=== PATIENT | female | born 1990 | race Caucasian/White ===

== ENCOUNTER 2017-12-25 12:23 | Emergency (ER) | payer OTHER, SELFPAY ==
[2017-12-25 12:29] VITALS: BP 126/82; PULSE 78; RESP 16; TEMP 36.6; O2SAT 100; BMI 21.9
--- NOTE | 2017-12-25 13:09 | HMH.EDGENADL ---
ED Disposition Clinical Impression: Laceration Disposition: Home, Self-Care Condition on Discharge: Fair Instructions: DI for Laceration Repair Additional Instructions: keep stitches dry for 2 days and apply ointment at least once a day for 10 days. May have stitches removed in 9 to 10 days Prescriptions: Mupirocin [Bactroban 2% Ointment 22gm tube] 1 applicatio TP BID 10 Days #1 tube Sulfamethoxazole/Trimethoprim [Bactrim DS tablet] 1 each PO BID 10 Days #20 tab Referrals: Franklin Kiran [Primary Care Provider] - Time of Disposition: 14:16 - Critical Care Critical Care Time: No Attestation: On 12/25/17, the high probability of a clinically significant, sudden or life threatening deterioration of the following system(s) required my full and direct attention, intervention and personal management. The time I documented below is in addition to time spent performing reported procedures but includes the following listed in this critical care notation. Medical Decision Making - Medical Records Medical records reviewed: Yes: I reviewed the patient's medical records. Vital Signs: 12/25/17 12:29 Temperature 97.9 F Temperature Source Oral Pulse Rate [Right Brachial] 78 Respiratory Rate 16 Blood Pressure [Right Arm] 126/82 Blood Pressure Mean [Right Arm] 96 Blood Pressure Source [Right Arm] Automatic Cuff Blood Pressure Position [Right Arm] Sitting 02 Sat by Pulse Oximetry 100 Oxygen Delivery Method Room Air - Elan Inquiry Pt receiving controlled substance: No Elan was queried for this patient: No General Adult HPI - General Chief complaint: Wound/Laceration Stated complaint: lac left hand pinky finger Time Seen by Provider: 12/25/17 13:10 Mode of Arrival: Ambulatory Limitations: No Limitations Description of Symptoms (Recalled from ER Triage Doc. by RN): laceration to L 5th finger from a knife - History of Present Illness HPI narrative: Pt cut left 5th finger tip with a knife trying to take wax out of a wax warmer at home. Small cut on tip of left 5th finger. Tetanus is UTD Onset (ago): hour(s) - Related Data Home Medications Medication Instructions Recorded Confirmed Amitriptyline HCl [Elavil 10mg 10 mg PO DAILY 12/25/17 12/25/17 tablet] Estradiol 2 mg PO DAILY 12/25/17 12/25/17 PARoxetine HCl [Paxil 10mg Tablet] 0 mg PO DAILY 12/25/17 12/25/17 diazePAM [diazePAM 5mg Tablet] 0 mg PO DAILY 12/25/17 12/25/17 Previous Rx's Medication Instructions Recorded Mupirocin [Bactroban 2% Ointment 1 applicatio TP BID 10 Days #1 tube 12/25/17 22gm tube] Sulfamethoxazole/Trimethoprim 1 each PO BID 10 Days #20 tab 12/25/17 [Bactrim DS tablet] Allergies Allergy/AdvReac Type Severity Reaction Status Date / Time Penicillins [PENICILLINS] Allergy Unknown Verified 12/25/17 12:35 [facility] History I have reviewed the patient's past medical history: Yes Medical History: Denies:: Cancer, Diabetes Mellitus Type 1, Diabetes Mellitus Type 2 Amputation: No Fractures: No - Social History Alcohol Intake: never - Psychiatric History Expresses thoughts of harming self/others: None Suicide Plan Description: No Plan ROS Obtained: Yes All systems reviewed & no additional complaints Physical Exam - General General appearance: alert, in no apparent distress - Respiratory Respiratory exam: Present: normal lung sounds bilaterally - Cardiovascular Cardiovascular exam: Present: regular rate - Expanded Upper Extremity Exam Left Hand exam: Present: other (0.5 cm cut on tip of left 5th finger) - Neurological Exam Neurological exam: Present: alert, oriented X3 - Psychiatric Psychiatric exam: Present: normal affect - Skin Skin exam: Present: other (small laceration on tip of left 5th finger) Procedures - Laceration Laceration 1 Site: finger (left 5th finger tip) Side (If applicable): left Size (cm): 0.5 Description: linear Depth: involves subcutane
--- NOTE | 2017-12-25 13:13 | ED_ITS ---
ED Disposition Clinical Impression: Laceration Disposition: Home, Self-Care Condition on Discharge: Fair Instructions: DI for Laceration Repair Additional Instructions: keep stitches dry for 2 days and apply ointment at least once a day for 10 days. May have stitches removed in 9 to 10 days Prescriptions: Mupirocin [Bactroban 2% Ointment 22gm tube] 1 applicatio TP BID 10 Days #1 tube Sulfamethoxazole/Trimethoprim [Bactrim DS tablet] 1 each PO BID 10 Days #20 tab Referrals: Franklin Kiran [Primary Care Provider] - Time of Disposition: 14:16 - Critical Care Critical Care Time: No Attestation: On 12/25/17, the high probability of a clinically significant, sudden or life threatening deterioration of the following system(s) required my full and direct attention, intervention and personal management. The time I documented below is in addition to time spent performing reported procedures but includes the following listed in this critical care notation. Medical Decision Making - Medical Records Medical records reviewed: Yes: I reviewed the patient's medical records. Vital Signs: 12/25/17 12:29 Temperature 97.9 F Temperature Source Oral Pulse Rate [Right Brachial] 78 Respiratory Rate 16 Blood Pressure [Right Arm] 126/82 Blood Pressure Mean [Right Arm] 96 Blood Pressure Source [Right Arm] Automatic Cuff Blood Pressure Position [Right Arm] Sitting 02 Sat by Pulse Oximetry 100 Oxygen Delivery Method Room Air - Elan Inquiry Pt receiving controlled substance: No Elan was queried for this patient: No General Adult HPI - General Chief complaint: Wound/Laceration Stated complaint: lac left hand pinky finger Time Seen by Provider: 12/25/17 13:10 Mode of Arrival: Ambulatory Limitations: No Limitations Description of Symptoms (Recalled from ER Triage Doc. by RN): laceration to L 5th finger from a knife - History of Present Illness HPI narrative: Pt cut left 5th finger tip with a knife trying to take wax out of a wax warmer at home. Small cut on tip of left 5th finger. Tetanus is UTD Onset (ago): hour(s) - Related Data Home Medications Medication Instructions Recorded Confirmed Amitriptyline HCl [Elavil 10mg 10 mg PO DAILY 12/25/17 12/25/17 tablet] Estradiol 2 mg PO DAILY 12/25/17 12/25/17 PARoxetine HCl [Paxil 10mg Tablet] 0 mg PO DAILY 12/25/17 12/25/17 diazePAM [diazePAM 5mg Tablet] 0 mg PO DAILY 12/25/17 12/25/17 Previous Rx's Medication Instructions Recorded Mupirocin [Bactroban 2% Ointment 1 applicatio TP BID 10 Days #1 tube 12/25/17 22gm tube] Sulfamethoxazole/Trimethoprim 1 each PO BID 10 Days #20 tab 12/25/17 [Bactrim DS tablet] Allergies Allergy/AdvReac Type Severity Reaction Status Date / Time Penicillins [PENICILLINS] Allergy Unknown Verified 12/25/17 12:35 [facility] History I have reviewed the patient's past medical history: Yes Medical History: Denies:: Cancer, Diabetes Mellitus Type 1, Diabetes Mellitus Type 2 Amputation: No Fractures: No - Social History Alcohol Intake: never - Psychiatric History Expresses thoughts of harming self/others: None Suicide Plan Description: No Plan ROS Obtained: Yes All systems reviewed & no additional complaints Physical Exam - General Ge
[2017-12-25 14:27] VITALS: BP 124/80; PULSE 72; RESP 16; TEMP 36.6; O2SAT 98
== END 2017-12-25 14:30 | disposition home or self-care (01) ==
PROVIDERS: Emergency Provider Family Medicine; PCP Pediatrics
DX: S61.217A Laceration without foreign body of left little finger without damage to nail, initial encounter (principal); W26.0XXA Contact with knife, initial encounter; Y93.E9 Activity, other interior property and clothing maintenance; Y92.009 Unspecified place in unspecified non-institutional (private) residence as the place of occurrence of the external cause
CPT/HCPCS: 12001; 96372; 99281; 99282

== ENCOUNTER → 2020-05-15 11:44 | Outpatient (CLI) | payer MEDICAID, SELFPAY ==
[2020-05-15 13:21] LABS: Erythrocyte Sedimentation Rate 13 mm/hr (0-20)
[2020-05-15 14:14] LABS: Uric Acid 4.5 mg/dl (2.5-6.2)
[2020-05-15 14:20] LABS: C-Reactive Protein 0.7 mg/L (0-4)
[2020-05-16 14:30] LABS: Antiscleroderma-70 Antibodies <0.2 AI (0.0-0.9); Complement C3 103 mg/dL (82-167); RA Latex Turbid. <10.0 IU/mL (0.0-13.9); Sjogren's Anti-SS-A <0.2 AI (0.0-0.9); Sjogren's Anti-SS-B <0.2 AI (0.0-0.9); Smith/RNP Antibodies <0.2 AI (0.0-0.9)
[2020-05-17 09:38] LABS: Anti-Cyclic Citrullinated Pept 6 units (0-19); Anti-DNA (DS) Ab Qn <1 IU/mL (0-9); Antinuclear Antibodies, IFA Positive (.)
[2020-05-26 19:21] LABS: APTT 28.5 sec (.); Anti-Cardiolipin Antibody IgG <10 GPL (.); Anti-Cardiolipin Antibody IgM 12 MPL (.); Beta-2 Glycoprotein I Ab, IgA <10 SAU (.); Beta-2 Glycoprotein I Ab, IgG <10 SGU (.); Beta-2 Glycoprotein I Ab, IgM <10 SMU (.); Hexagonal Phase Phospholipid 0 sec (.); Prothrombin Time 10.7 sec (.); Thrombin Time 18.3 sec (.)
== END ==
PROVIDERS: Visit Provider Nurse Practitioner
DX: R76.8 Other specified abnormal immunological findings in serum (principal)
CPT/HCPCS: 36415; 84550; 85597; 85598; 85610; 85613; 85651; 85670; 85730; 86038; 86140; 86146; 86147; 86161; 86200; 86225; 86235; 86431

== ENCOUNTER 2023-08-06 13:36 | Emergency (ER) | payer MEDICAID, SELFPAY ==
[2023-08-06 13:37] VITALS: BP 116/74; PULSE 51; RESP 18; TEMP 36.9; O2SAT 97; BMI 23.5
--- NOTE | 2023-08-06 13:49 | EXP.UTC ---
Discharge Plan Disposition Patient Disposition: Home, Self-Care Condition: Good Prescriptions Prescriptions: New methylprednisolone 4 mg Tablets,Dose Pack 4 mg PO DIRECTED Qty: 21 0RF promethazine-DM 6.25-15 mg/5 mL Syrup 5 ml PO Q6H PRN (Reason: Cough) Qty: 240 0RF azithromycin [Zithromax] 250 mg tablet 250 mg PO UD DOSE PK Qty: 6 0RF Rx Instructions: Take two (2) tablets today, then one (1) tablet days #2 thru #5 No Action Tyblume 0.1 mg- 20 mcg tablet,chewable 1 tab PO DAILY Qty: 28 11RF estradiol 2 mg tablet See Rx Instructions .ROUTE .COMPLEX Qty: 30 11RF Dose Instruction: TAKE ONE TABLET BY MOUTH ONCE A DAY FOR HORMONES Rx Instructions: TAKE ONE TABLET BY MOUTH ONCE A DAY FOR HORMONES pantoprazole 40 mg tablet,delayed release (DR/EC) 40 mg PO DAILY paroxetine HCl 40 mg tablet 40 mg PO DAILY diazepam 5 mg tablet 5 mg PO DAILY Referrals Follow up/Referrals: Franklin Kiran [Primary Care Provider] - See instructions Activity Restrictions/Add. Instructions Additional Instructions/Restrictions: Drink plenty of fluids. Take tylenol or ibuprofen for pain or fever. Take the medications as directed. Follow up with your regular doctor. GO TO THE ER FOR ANY WORSENING SYMPTOMS Don't start the oral steroids until tomorrow, since you had the shot here today. The cough medication (promethazine dm) will make you drowsy, so don't drive or operate heavy machinery after taking it. Clinical Impressions Clinical Impression: Acute bronchitis, Pleurisy, Rib pain on left side Stand Alone Forms Stand Alone Forms: Work/School Release Instructions Patient Instructions: DI for Acute Bronchitis, DI for Pleurisy Discharge ED Provider: Vignesh Rdz [facility] General Stated complaint: lower left side pain Time Seen by Provider: 08/06/23 13:49 History of Present Illness Provider Complaint: She states that for the past 5 days she has had a productive cough and she has felt bad. She states that she has coughed so much that she is having left rib pain when she coughs or deep breathes. Related Data Home Medications Medication Instructions Recorded Confirmed diazepam 5 mg tablet 5 mg PO DAILY 08/06/23 08/06/23 pantoprazole 40 mg tablet,delayed 40 mg PO DAILY 08/06/23 08/06/23 release paroxetine HCl 40 mg tablet 40 mg PO DAILY 08/06/23 08/06/23 Previous Rx's Medication Instructions Recorded estradiol 2 mg tablet See Rx Instructions .Route 09/24/20 .COMPLEX #30 tabs levonorgestrel 0.1 mg-ethinyl 1 tab PO DAILY #28 tabs 08/19/22 estradiol 20 mcg chewable tablet (Tyblume) azithromycin 250 mg tablet 250 mg PO UD DOSE PK #6 tabs 08/06/23 (Zithromax) methylprednisolone 4 mg tablets in 4 mg PO DIRECTED #21 tabs 08/06/23 a dose pack promethazine-DM 6.25 mg-15 mg/5 mL 5 ml PO Q6H PRN Cough #240 mL 08/06/23 oral syrup Allergies Allergy/AdvReac Type Severity Reaction Status Date / Time Penicillins [PENICILLINS] Allergy Unknown Verified 08/06/23 14:[address] [facility] Disclaimer: The information contained in this section may have been updated after the patient was seen, as this information can be updated by other users. Surgical History History of [facility] Social History Smoking Status: Never smoker alcohol intake: never current occupational status: employed Travel in the last 8 weeks: None ROS Obtained: Yes All systems reviewed & no additional complaints except as documented Constitutional Constitutional: Reports poor appetite Eyes Eyes: Reports system reviewed and no additional complaints, except as documented ENT Ears, Nose, Mouth, and Throat: Reports as per HPI Cardiovascular Cardiovascular: Reports as per HPI and Denies chest pain Respiratory Respiratory: Denies shortness of breath, Reports
--- NOTE | 2023-08-06 14:06 | XR_ITS ---
FINAL REPORT CLINICAL HISTORY: left anterior rib pain, cough x 1 week FINDINGS: 3 views of the left ribs and a single view of the chest was obtained. There is no acute cardiopulmonary process. The heart is normal in size. There is no acute displaced rib fracture identified. No pneumothorax. Soft tissues are unremarkable. IMPRESSION: Unremarkable exam. Reviewed, Interpreted and Dictated by Ramo Knowles III, MD Transcribed by Jonelle Gonzales Authenticated and [facility]
[2023-08-06 15:09] VITALS: BP 116/74; PULSE 51; RESP 18; TEMP 36.9; O2SAT 97
== END 2023-08-06 15:09 | disposition home or self-care (01) ==
PROVIDERS: Emergency Provider Nurse Practitioner Family; PCP Pediatrics
DX: R09.1 Pleurisy (principal); J20.9 Acute bronchitis, unspecified; R07.81 Pleurodynia
CPT/HCPCS: 71101; 96372; 99204; 99212; G0463

== ENCOUNTER 2023-08-23 18:51 | Emergency (ER) | payer MEDICAID, SELFPAY ==
[2023-08-23 19:00] VITALS: BP 122/89; PULSE 90; RESP 18; TEMP 36.8; O2SAT 100; BMI 23.5
--- NOTE | 2023-08-23 19:11 | EXP.UTC ---
Discharge Plan Disposition Patient Disposition: Home, Self-Care Condition: Good Prescriptions Prescriptions: New ondansetron 4 mg tablet,disintegrating 4 mg PO Q8H PRN (Reason: nausea and vomiting) Qty: 10 0RF No Action pantoprazole 40 mg tablet,delayed release (DR/EC) 40 mg PO DAILY estradiol 2 mg tablet 2 mg PO DAILY loratadine 10 mg tablet 10 mg PO DAILY diazepam 5 mg tablet 5 mg PO DAILY Referrals Follow up/Referrals: Franklin Agudelo MD [Primary Care Provider] - See instructions Activity Restrictions/Add. Instructions Additional Instructions/Restrictions: *Monitor Temp, Over the counter Motrin or Tylenol as directed/as needed Tylenol every 4 hours and Motrin every 6 hours (as long as your family doctor has told you that you can take it) for fever or pain. and straight to ER if unable to lower temp less than 101.0 after medication given *Warm salt water gargles may help to soothe the throat *Throat Lozenges? *Warm fluids like tea with honey may help to soothe the throat? *Sleep elevated *Humidifier/Vaporizer Follow up IMMEDIATELY for new or worsening symptoms or no Noticeable improvement over the next 48-72 hours. 911 for difficulty breathing or swallowing Make sure to drink plenty of fluids You were tested for today for Upper Respiratory Panel with COVID19 your test result should be back in the next 24 you may view your results on the [facility] if your COVID or Flu is positive you must Quarantine for 5 days Clinical Impressions Clinical Impression: Viral syndrome Instructions Patient Instructions: DI for Viral Syndrome, DI for Fever (Symptom) -- Adult, Nausea and Vomiting-Adult Discharge ED Provider: Candy Carlos [facility] HPI General Stated complaint: vomiting and fever Mode of Arrival: Ambulatory Source of Information: Patient Limitations: No Limitations Time Seen by Provider: 08/23/23 19:11 Description of Symptoms (Recalled from Triage Doc. by RN): PATIENT C/O VOMITING, CHILLS, FEVER, BODY ACHES AND DIARRHEA X 2 DAYS HEENT Symptoms (Recalled from RN notes): No Resp Symptoms (Recalled from RN notes): No Skin Symptoms (Recalled from RN notes): No MS Symptoms (Recalled from RN notes): No Functional Status (Recalled from RN notes): WNL History of Present Illness Provider Complaint: Patient states that she feels like she may have the flu States that for the last 2 days she has been having fever, chills, body aches, vomiting and diarrhea States that this evening she was still not feeling well so she came in worried that she may have flu or COVID Related Data Home Medications Medication Instructions Recorded Confirmed diazepam 5 mg tablet 5 mg PO DAILY 08/23/23 08/23/23 estradiol 2 mg tablet 2 mg PO DAILY Supplement 08/23/23 08/23/23 loratadine 10 mg tablet 10 mg PO DAILY 08/23/23 08/23/23 pantoprazole 40 mg tablet,delayed 40 mg PO DAILY GERD 08/23/23 08/23/23 release Previous Rx's Medication Instructions Recorded ondansetron 4 mg disintegrating 4 mg PO Q8H PRN nausea and 08/23/23 tablet vomiting #10 tabs Allergies Allergy/AdvReac Type Severity Reaction Status Date / Time Penicillins [PENICILLINS] Allergy Unknown Verified 08/06/23 14:05 Worker's Comp Is this a Worker's Comp case?: No [facility] Disclaimer: The information contained in this section may have been updated after the patient was seen, as this information can be updated by other users. Surgical History History of [facility] Social History Smoking Status: Never smoker alcohol intake: never current occupational status: employed Travel in the last 8 weeks: None ROS Obtained: Yes All systems reviewed & no additional complaints except as documented and Yes Systems reviewed as appropriate & no additional complaints except
[2023-08-23 19:20] VITALS: BP 122/89; PULSE 90; RESP 18; TEMP 36.8; O2SAT 100
[2023-08-23 19:20] LABS: UTC Influenza A Antigen Negative (Negative); UTC Influenza B Antigen Negative (Negative)
[2023-08-23 19:34] LABS: Adenovirus,PCR Not Detected (NotDetected); Coronavirus 19, PCR Not Detected (NotDetected); Coronavirus 229E Not Detected (NotDetected); Coronavirus NL63 Not Detected (NotDetected); Coronavirus OC43 Not Detected (NotDetected); Coronovirus HKU1,PCR Not Detected (NotDetected); Human Metapneumovirus Not Detected (NotDetected); Influenza A, PCR Not Detected (NotDetected); Influenza AH1, 2009 Not Detected (NotDetected); Influenza AH1, PCR Not Detected (NotDetected); Influenza AH3,PCR Not Detected (NotDetected); Influenza B, PCR Not Detected (NotDetected); Parainfluenza 1, PCR Not Detected (NotDetected); Parainfluenza 2, PCR Not Detected (NotDetected); Parainfluenza 3, PCR Not Detected (NotDetected); Parainfluenza 4, PCR Not Detected (NotDetected); Respiratory Syncytial Virus Not Detected (NotDetected); Rhinovirus/Enterovirus Not Detected (NotDetected)
== END 2023-08-23 19:31 | disposition home or self-care (01) ==
PROVIDERS: Emergency Provider Nurse Practitioner; PCP Pediatrics
DX: R11.2 Nausea with vomiting, unspecified (principal); R19.7 Diarrhea, unspecified; R50.9 Fever, unspecified; B34.9 Viral infection, unspecified
CPT/HCPCS: 87632; 87635; 87804; 99212; 99214; G0463

== ENCOUNTER 2024-01-21 12:46 | Emergency (ER) | payer MEDICAID, SELFPAY ==
[2024-01-21 12:55] VITALS: BP 109/74; PULSE 66; RESP 20; TEMP 36.7; O2SAT 97; BMI 25.8
--- NOTE | 2024-01-21 13:15 | ED_ITS ---
Discharge Plan Disposition Patient Disposition: Home, Self-Care Condition: Good Prescriptions Prescriptions: New azithromycin [Zithromax] 250 mg tablet 250 mg PO UD DOSE PK Qty: 6 0RF Rx Instructions: Take two (2) tablets today, then one (1) tablet days #2 thru #5 [id number] [Bromfed DM] 2-30-10 mg/5 mL Syrup 5 ml PO Q6H PRN (Reason: Cough) Qty: 240 0RF No Action pantoprazole 40 mg tablet,delayed release (DR/EC) 40 mg PO DAILY estradiol 2 mg tablet 2 mg PO DAILY diazepam 5 mg tablet 5 mg PO DAILY paroxetine HCl 40 mg tablet 40 mg PO DAILY Referrals Follow up/Referrals: Franklin Agudelo MD [Primary Care Provider] - See instructions Activity Restrictions/Add. Instructions Additional Instructions/Restrictions: Drink plenty of fluids. Take tylenol or ibuprofen for pain or fever. Take the medications as directed. Follow up with your regular doctor. GO TO THE ER FOR ANY WORSENING SYMPTOMS Clinical Impressions Clinical Impression: Pharyngitis, Acute viral syndrome Stand Alone Forms Stand Alone Forms: Work/School Release Instructions Patient Instructions: Sore Throat, DI for Pharyngitis/Tonsillopharyngitis -- Adult, DI for Viral Syndrome Discharge ED Provider: Vignesh Rdz [facility] General Stated complaint: chills, sore throat, runny nose Mode of Arrival: Ambulatory Source of Information: Patient Limitations: No Limitations Time Seen by Provider: 01/21/24 13:14 Description of Symptoms (Recalled from Triage Doc. by RN): PATIENT C/O LOW-GRADE FEVER, CHILLS, BODY ACHES, AND SORE THROAT SINCE THIS MORNING HEENT Symptoms (Recalled from RN notes): Yes Resp Symptoms (Recalled from RN notes): No Skin Symptoms (Recalled from RN notes): No MS Symptoms (Recalled from RN notes): No Functional Status (Recalled from RN notes): WNL History of Present Illness Provider Complaint: She states that for the past 2 day she has had worsening sore throat, ear pain, and sinus congestion. Related Data Home Medications Medication Instructions Recorded Confirmed diazepam 5 mg tablet 5 mg PO DAILY 08/23/23 01/21/24 estradiol 2 mg tablet 2 mg PO DAILY Supplement 08/23/23 01/21/24 pantoprazole 40 mg tablet,delayed 40 mg PO DAILY GERD 08/23/23 01/21/24 release paroxetine HCl 40 mg tablet 40 mg PO DAILY 01/21/24 01/21/24 Previous Rx's Medication Instructions Recorded azithromycin 250 mg tablet 250 mg PO UD DOSE PK #6 tabs 01/21/24 (Zithromax) [id number] 5 ml PO Q6H PRN Cough #240 mL 01/21/24 2 mg-30 mg-10 mg/5 mL oral syrup (Bromfed DM) Allergies Allergy/AdvReac Type Severity Reaction Status Date / Time Penicillins [PENICILLINS] Allergy Unknown Verified 08/06/23 14:05 Worker's Comp Is this a Worker's Comp case?: No [facility] Disclaimer: The information contained in this section may have been updated after the patien александр was seen, as this information can be updated by other users. Surgical History History of [facility] Social History Smoking Status: Never smoker alcohol intake: never current occupational status: employed Travel in the last 8 weeks: None ROS Obtained: Yes All systems reviewed & no additional complaints except as documented Constitutional Constitutional: Reports chills and Reports fever(s) Eyes Eyes: Denies eye discharge ENT Ears, Nose, Mouth, and Throat: Reports as per HPI Cardiovascular Cardiovascular: Denies chest pain Respiratory Respiratory: Denies chest congestion and Reports cough Gastrointestinal Gastrointestingal: Reports nausea; Denies abdominal pain, constipation, cramping, diarrhea or vomiting Musculoskeletal Musculoskeletal: Denies arthralgias Integumentary/Breasts Skin/Breast: Denies rash Neurologic Neurologic: Denies paresthesias Physical Exam General General appearance: alert and in no apparent distress Head Head exam: atraumatic, normocephalic and normal inspection Eye Eye exam: Present normal appearance, PERRL and EOMI ENT ENT exam: Present mucous membranes moist and normal external ear exam Expanded ENT Exam TM/Canal exam: Bilateral TM: erythema and bulging Nose exam: Absent sinus tenderness Mouth exam: Present normal external inspection; Absent drooling Teeth exam: Present normal inspection Throat exam: Present tonsillar erythema, tonsillomegaly and tonsillar exudate Neck Neck exam: Present normal inspection, full ROM and trachea midline; Absent tenderness, meningismus or lymphadenopathy Chest Chest inspection: Present normal inspection and symmetric chest wall rise; Absent tenderness Respiratory Respiratory exam: Present normal lung sounds bilaterally; Absent respiratory distress, wheezes or stridor Cardiovascular Cardiovascular exam: Present regular rate and normal rhythm; Absent systolic murmur or diastolic murmur Abdominal Exam Abdominal exam: Present soft and normal bowel sounds; Absent distention, tenderness, guarding, rebound or rigidity Extremities Exam Extremities exam: Present normal inspection and normal capillary refill; Absent calf tenderness Back Exam Back exam: Present normal inspection and full ROM; Absent tenderness, CVA tenderness (R) or CVA tenderness (L) Neurological Exam Neurological exam: Present alert, oriented X3 and CN II-XII intact Psychiatric Psychiatric exam: Present normal affect and normal mood Skin Skin exam: Present warm, dry, intact and normal color Medical Decision Making Medical Records Medical records reviewed: No I reviewed the patient's medical records. Elan Inquiry Pt receiving controlled substance: No Vital Signs: 01/21/24 12:55 Temperature 98.1 F Temperature Source Oral Pulse Rate [Left Brachial] 66 Respiratory Rate 20 Blood Pressure [Left Arm] 109/74 L Blood Pressure Mean [Left Arm] 85 Blood Pressure Source [Left Arm] Automatic Cuff Blood Pressure Position [Left Arm] Sitting 02 Sat by Pulse Oximetry 97 Oxygen Delivery Method Room Air Lab Data Lab results reviewed: Yes I reviewed the patient's lab results.
[2024-01-21 13:16] LABS: UTC Strep Screen (Rapid) Negative (Negative)
[2024-01-21 13:21] VITALS: BP 109/74; PULSE 66; RESP 20; TEMP 36.7; O2SAT 97
[2024-01-21 13:41] LABS: Coronavirus 19, PCR Not Detected (NotDetected); Influenza A, PCR Not Detected (NotDetected); Influenza B, PCR Not Detected (NotDetected)
== END 2024-01-21 13:38 | disposition home or self-care (01) ==
PROVIDERS: Emergency Provider Nurse Practitioner Family; PCP Pediatrics
DX: J02.9 Acute pharyngitis, unspecified (principal); H92.03 Otalgia, bilateral; R09.81 Nasal congestion
CPT/HCPCS: 87636; 87880; 99212; 99214; G0463

== ENCOUNTER 2024-01-24 20:52 | Emergency (ER) | payer MEDICAID, SELFPAY ==
[2024-01-24 20:53] VITALS: BP 116/67; PULSE 80; RESP 16; TEMP 36.7; O2SAT 97; BMI 25.8
--- NOTE | 2024-01-24 21:36 | ED_ITS ---
Discharge Plan Disposition Patient Disposition: Home, Self-Care Prescriptions Prescriptions: New fxkkrqtkrlbaxmy-jxmkhgyhs-AY [Bromfed DM] 2-30-10 mg/5 mL syrup 5 ml PO Q6H PRN (Reason: cold symptoms) Qty: 118 0RF ondansetron 4 mg tablet,disintegrating 4 mg PO Q8H PRN (Reason: nausea and vomiting) 4 Days Qty: 12 0RF No Action pantoprazole 40 mg tablet,delayed release (DR/EC) 40 mg PO DAILY estradiol 2 mg tablet 2 mg PO DAILY diazepam 5 mg tablet 5 mg PO DAILY paroxetine HCl 40 mg tablet 40 mg PO DAILY azithromycin [Zithromax] 250 mg tablet 250 mg PO UD DOSE PK Qty: 6 0RF Rx Instructions: Take two (2) tablets today, then one (1) tablet days #2 thru #5 ucqxzluroimrjri-thxqsmwva-NF [Bromfed DM] 2-30-10 mg/5 mL Syrup 5 ml PO Q6H PRN (Reason: Cough) Qty: 240 0RF Referrals Follow up/Referrals: Franklin Agudelo MD [Primary Care Provider] - See instructions Activity Restrictions/Add. Instructions Additional Instructions/Restrictions: At this time it was felt you are safe to be discharged home. If new or worsening symptoms please do not hesitate to return the emergency department. Symptoms will likely last 7 to 10 days however can last up to 2 weeks. If symptoms persist beyond this please follow-up with your family doctor. Please take your medication as prescribed. Clinical Impressions Clinical Impression: Acute viral syndrome Stand Alone Forms Stand Alone Forms: Work/School Release Discharge ED Provider: Tony Arnett General Adult HPI General Chief complaint: Upper Respiratory Infection Stated complaint: fever, blisters in throat Time Seen by Provider: 01/24/24 21:15 Mode of Arrival: Ambulatory Source of Information: Patient Limitations: No Limitations Description of Symptoms (Recalled from ER Triage Doc. by RN): Pt presents to ED for chills, congestion, N/V/D. Pt states she was seen by [facility] on 01/20 and her swabs were negative. Pt is A&O*4. History of Present Illness HPI narrative: Patient is a 33-year-old female with no pertinent past medical history presents emergency department for evaluation of vomiting, diarrhea, chills, congestion. Onset was acute, occurring over the last few days. Vomiting diarrhea been nonbloody. Patient does not have periods anymore as she has a previous hysterectomy. Slight associated cough. Associated sore throat. No other acute complaints at this time. Related Data Home Medications Medication Instructions Recorded Confirmed diazepam 5 mg tablet 5 mg PO DAILY 08/23/23 01/21/24 estradiol 2 mg tablet 2 mg PO DAILY Supplement 08/23/23 01/21/24 pantoprazole 40 mg tablet,delayed 40 mg PO DAILY GERD 08/23/23 01/21/24 release paroxetine HCl 40 mg tablet 40 mg PO DAILY 01/21/24 01/21/24 Previous Rx's Medication Instructions Recorded azithromycin 250 mg tablet 250 mg PO UD DOSE PK #6 tabs 01/21/24 (Zithromax) ojvgwdtzeokbtgy-jjyxyjeinooggvc-GL 5 ml PO Q6H PRN Cough #240 mL 01/21/24 2 mg-30 mg-10 mg/5 mL oral syrup (Bromfed DM) wxfeexsfzubibxn-dqbltyksldjkjdk-XX 5 ml PO Q6H PRN cold symptoms #118 01/24/24 2 mg-30 mg-10 mg/5 mL oral syrup mL (Bromfed DM) ondansetron 4 mg disintegrating 4 mg PO Q8H PRN nausea and 01/24/24 tablet vomiting 4 days #12 tabs Allergies Allergy/AdvReac Type Severity Reaction Status Date / Time Penicillins [PENICILLINS] Allergy Unknown Verified 08/06/23 14:05 [facility] Disclaimer: The information contained in this section may have been updated after the patient was seen, as this information can be updated by other users. Surgical History History of [facility] Social History Smoking Status: Never smoker alcohol intake: never current occupational status: employed Travel in the last 8 weeks: None ROS Obtained: Yes Systems reviewed as appropriate & no additional complaints except as documented Physical Exam General General appearance: alert and in no apparent distress Head Head exam: atraumatic and normocephalic Eye Eye exam: Present PERRL and EOMI ENT ENT exam: Present mucous membranes moist; Absent normal oropharynx (Erythematous posterior oropharynx, uvula midline.) Neck Neck exam: Present normal inspection Chest Chest inspection: Present normal inspection and symmetric chest wall rise Respiratory Respiratory exam: Present normal lung sounds bilaterally; Absent respiratory distress Cardiovascular Cardiovascular exam: Present regular rate and normal rhythm Abdominal Exam Abdominal exam: Present soft; Absent tenderness Extremities Exam Extremities exam: Present normal inspection Neurological Exam Neurological exam: Present alert Psychiatric Psychiatric exam: Present normal affect Skin Skin exam: Present warm and dry Medical Decision Making Elan Inquiry Pt receiving controlled substance: No Vital Signs: 01/24/24 20:53 Temperature 98.1 F Temperature Source Oral Pulse Rate [Left] 80 Respiratory Rate 16 Blood Pressure [Right Arm] 116/67 Blood Pressure Mean [Right Arm] 83 02 Sat by Pulse Oximetry 97 Oxygen Delivery Method Room Air Lab Data Lab Results 01/24/24 21:02: SARS-CoV-2 (PCR) Not detected, Influenza A Untype (PCR) Not detected, Influenza Type B (PCR) Not detected, Group A Strep Rapid Negative Orders (Tests/Meds): ED MEDICATIONS Discontinued Medications Generic Name Dose Route Start Last Admin Trade Name Vincenzo PRN Reason Stop Dose Admin Acetaminophen 1,000 mg 01/24/24 21:35 01/24/24 21:43 Acetaminophen 500mg Tab PO 01/24/24 21:36 1,000 mg ONCE ONE Administration Ibuprofen 600 mg 01/24/24 21:35 01/24/24 21:43 Ibuprofen 600 Mg Tablet PO 01/24/24 21:36 600 mg ONCE ONE Administration Ondansetron HCl 4 mg 01/24/24 21:35 01/24/24 21:43 Ondansetron 4mg Odt SL 01/24/24 21:36 4 mg ONCE ONE Administration Tetracycl/Hydrocort/Nystatin/Diphen 15 ml 01/24/24 21:35 01/24/24 21:44 Magic Mouthwash 300ml Bottle PO 01/24/24 21:36 15 ml ONCE ONE Administration ORDERS Category Date Time Status Rapid PCR Covid and Flu A/B Stat Lab 01/24/24 21:02 Completed Strep Scrn Group A (Rapid) Stat Lab 01/24/24 21:02 Completed Strep Screen Confirmation Stat Micro 01/24/24 21:02 Received Medical Decision Narrative: In summary patient is a 33-year-old female past medical history described above who presents emergency department for evaluation of multiple complaints including sore throat, vomiting, diarrhea. Patient is hemodynamically stable nontoxic-appearing upon arrival, afebrile. History and physical exam consistent with viral syndrome. Differential includes strep pharyngitis, influenza, COVID- 19, among others. Initial workup will be limited to viral and strep swab. Initial inventions include Tylenol, ibuprofen, Zofran, Magic mouthwash, p.o. trial. Workup reviewed by me, viral swab and strep swab negative. Upon repeat evaluation patient with p.o. trial was successful. Given this patient likely has viral syndrome and is appropriate for outpatient management at this time will be discharged with a course of Zofran and Bromfed. Critical Care Critical Care Time Critical Care Time: No
[2024-01-24 21:42] LABS: Coronavirus 19, PCR Not Detected (NotDetected); Influenza A, PCR Not Detected (NotDetected); Influenza B, PCR Not Detected (NotDetected)
[2024-01-24] MEDS: IBUPROFEN 600 MG TABLET PO (21:43)
[2024-01-24] MEDS: ACETAMINOPHEN 500MG TAB 1000 MG PO (21:43)
[2024-01-24] MEDS: ONDANSETRON 4MG ODT 4 MG SL (21:43)
[2024-01-24] MEDS: MAGIC MOUTHWASH 300ML BOTTLE 15 ML PO (21:44)
[2024-01-24 22:15] LABS: Strep Scrn Group A (Rapid) Negative (Negative)
[2024-01-24 22:31] VITALS: BP 118/65; PULSE 80; RESP 16; TEMP 36.9; O2SAT 98
== END 2024-01-24 22:37 | disposition home or self-care (01) ==
PROVIDERS: Emergency Provider Emergency Medicine; PCP Pediatrics
DX: R11.2 Nausea with vomiting, unspecified (principal); R19.7 Diarrhea, unspecified; R09.81 Nasal congestion; R05.9 Cough, unspecified; R07.0 Pain in throat; B34.9 Viral infection, unspecified
CPT/HCPCS: 87430; 87636; 99283

== ENCOUNTER 2024-05-09 08:00 | Emergency (ER) | payer MEDICAID, SELFPAY ==
[2024-05-09 08:05] VITALS: BP 116/80; PULSE 57; RESP 20; TEMP 36.6; O2SAT 98; BMI 24.7
--- NOTE | 2024-05-09 08:15 | EXP.UTC ---
Discharge Plan Disposition Patient Disposition: Home, Self-Care Condition: Good Prescriptions Prescriptions: No Action pantoprazole 40 mg tablet,delayed release (DR/EC) 40 mg PO DAILY estradiol 2 mg tablet 2 mg PO DAILY diazepam 5 mg tablet 5 mg PO DAILY paroxetine HCl 40 mg tablet 40 mg PO DAILY azithromycin [Zithromax] 250 mg tablet 250 mg PO UD DOSE PK Qty: 6 0RF Rx Instructions: Take two (2) tablets today, then one (1) tablet days #2 thru #5 chjkvfoqjbnqsuu-wegyzkhbg-MC [Bromfed DM] 2-30-10 mg/5 mL Syrup 5 ml PO Q6H PRN (Reason: Cough) Qty: 240 0RF ynckibrazkuuedw-pnyoigyrv-FZ [Bromfed DM] 2-30-10 mg/5 mL syrup 5 ml PO Q6H PRN (Reason: cold symptoms) Qty: 118 0RF ondansetron 4 mg tablet,disintegrating 4 mg PO Q8H PRN (Reason: nausea and vomiting) 4 Days Qty: 12 0RF Referrals Follow up/Referrals: Franklin Agudelo MD [Primary Care Provider] - See instructions Activity Restrictions/Add. Instructions Additional Instructions/Restrictions: *Monitor Temp, Over the counter Motrin or Tylenol as directed/as needed Tylenol every 4 hours and Motrin every 6 hours (as long as your family doctor has told you that you can take it) for fever or pain. and straight to ER if unable to lower temp less than 101.0 after medication given *Warm salt water gargles may help to soothe the throat *Throat Lozenges? *Warm fluids like tea with honey may help to soothe the throat? *Sleep elevated *Humidifier/Vaporizer Follow up IMMEDIATELY for new or worsening symptoms or no Noticeable improvement over the next 48-72 hours. 911 for difficulty breathing or swallowing You were tested for today for COVID19 your test result should be back in the next 24 hours, you may check your results on the [facility] [employer] [facility] Clinical Impressions Clinical Impression: Viral syndrome Stand Alone Forms Stand Alone Forms: Work/School Release Instructions Patient Instructions: DI for Viral Syndrome, DI for COVID-19 (Suspected or Confirmed ) Discharge ED Provider: Candy Carlos [facility] [place] General Stated complaint: congestion, chills, body aches, exp to covid Mode of Arrival: Ambulatory Source of Information: Patient Limitations: No Limitations Time Seen by Provider: 05/09/24 08:15 Description of Symptoms (Recalled from Triage Doc. by RN): PATIENT C/O CONGESTION, HEADACHE, CHILLS, BODY ACHES, AND SLEEPING A LOT SINCE THURSDAY NIGHT. RECENTLY EXPOSED TO COVID HEENT Symptoms (Recalled from RN notes): Yes Resp Symptoms (Recalled from RN notes): No Skin Symptoms (Recalled from RN notes): No MS Symptoms (Recalled from RN notes): No Functional Status (Recalled from RN notes): WNL History of Present Illness Provider Complaint: Patient states that she has been around her mother that tested positive for COVID and now she is wanting to get tested States that she has been having nasal congestion, fatigue, headache and body aches and then last night started with chills so she came in to get checked Related Data Home Medications Medication Instructions Recorded Confirmed diazepam 5 mg tablet 5 mg PO DAILY 05/09/24 05/09/24 estradiol 2 mg tablet 2 mg PO DAILY 05/09/24 05/09/24 loratadine 10 mg tablet 10 mg PO DAILY 05/09/24 05/09/24 pantoprazole 40 mg tablet,delayed 40 mg PO DAILY 05/09/24 05/09/24 release paroxetine HCl 40 mg tablet 40 mg PO DAILY 05/09/24 05/09/24 trazodone 50 mg tablet 50 mg PO DAILY 05/09/24 05/09/24 Allergies Allergy/AdvReac Type Severity Reaction Status Date / Time Penicillins [PENICILLINS] Allergy Unknown Verified 08/06/23 14:05 Worker's Comp Is this a Worker's Comp case?: No [facility] Disclaimer: The information contained in this section may have been updated after the patient was seen, as this information can be updated by other users. Medical History (Updated 05/09/24 @ 08:20 by Candy Carlos APRN) Depression Anxiety Lupus Surgical History (Updated 05/09/24 @ 08:18 by Tiffani Del Castillo RN) History of appendectomy History of hysterectomy History of [facility] Social History Smoking Status: Never smoker alcohol intake: never current occupational status: employed Travel in the last 8 weeks: None ROS Obtained: Yes All systems reviewed & no additional complaints except as documented and Yes Systems reviewed as appropriate & no additional complaints except as documented Constitutional Constitutional: Reports system reviewed and no additional complaints, except as documented, Reports as per HPI, Reports body ache, Reports chills, Reports fatigue and Reports headache(s) ENT Ears, Nose, Mouth, and Throat: Reports system reviewed and no additional complaints, except as documented, Reports as per HPI, Reports headache(s), Reports nasal congestion and Reports nasal discharge Cardiovascular Cardiovascular: Reports system reviewed and no additional complaints, except as documented and Reports as per HPI Respiratory Respiratory: Reports system reviewed and no additional complaints, except as documented and Reports as per HPI Gastrointestinal Gastrointestingal: Reports system reviewed and no additional complaints, except as documented and as per HPI Neurologic Neurologic: Reports headache(s) Endocrine Endocrine: Reports fatigue Physical Exam General General appearance: alert and in no apparent distress ENT ENT exam: Present mucous membranes moist Expanded ENT Exam Nose exam: Absent sinus tenderness Throat exam: Present normal inspection Respiratory Respiratory exam: Present normal lung sounds bilaterally; Absent respiratory distress or wheezes Cardiovascular Cardiovascular exam: Present regular rate, normal rhythm and normal heart sounds Neurological Exam Neurological exam: Present alert, oriented X3 and normal gait Medical Decision Making Elan Inquiry Pt receiving controlled substance: No Elan was queried for this patient: No Vital Signs: 05/09/24 08:05 Temperature 97.8 F Temperature Source Oral Pulse Rate [Left Brachial] 57 L Respiratory Rate 20 Blood Pressure [Left Arm] 116/80 Blood Pressure Mean [Left Arm] 92 Blood Pressure Source [Left Arm] Automatic Cuff Blood Pressure Position [Left Arm] Sitting 02 Sat by Pulse Oximetry 98 Oxygen Delivery Method Room Air
[2024-05-09 08:18] VITALS: BP 116/80; PULSE 57; RESP 20; TEMP 36.6; O2SAT 98
== END 2024-05-09 08:20 | disposition home or self-care (01) ==
PROVIDERS: Emergency Provider Nurse Practitioner; PCP Pediatrics
DX: R51.9 Headache, unspecified (principal); R09.81 Nasal congestion; R53.83 Other fatigue; Z20.822 Contact with and (suspected) exposure to COVID-19
CPT/HCPCS: 87635; 99212; 99213; G0463

== ENCOUNTER 2024-05-21 19:15 | Emergency (ER) | payer MEDICAID, SELFPAY ==
[2024-05-21 19:20] VITALS: BP 122/79; PULSE 88; RESP 18; TEMP 37.1; O2SAT 100; BMI 24.3
--- NOTE | 2024-05-21 19:22 | EXP.UTC ---
Discharge Plan Disposition Patient Disposition: Home, Self-Care Condition: Good Prescriptions Prescriptions: New prednisone 20 mg tablet 20 mg PO BID Qty: 10 0RF No Action trazodone 50 mg tablet 50 mg PO DAILY pantoprazole 40 mg tablet,delayed release (DR/EC) 40 mg PO DAILY estradiol 2 mg tablet 2 mg PO DAILY paroxetine HCl 40 mg tablet 40 mg PO DAILY loratadine 10 mg tablet 10 mg PO DAILY diazepam 5 mg tablet 5 mg PO DAILY Referrals Follow up/Referrals: Franklin Agudelo MD [Primary Care Provider] - See instructions Clinical Impressions Clinical Impression: Acute viral syndrome Instructions Patient Instructions: DI for Viral Upper Respiratory Infection -- Adult Print Language Print Language: Sami Discharge ED Provider: Radha Bacon [facility] [place] HPI General Stated complaint: body aches fever, covid flu test Time Seen by Provider: 05/21/24 19:31 History of Present Illness Provider Complaint: Woke up this morning feeling stiff and achy, which isn't unusual since she has lupus. As the day has gone on, feels as if she has been hit by a truck. Fever, achy, sore all over. Some sinus drainage. No vomiting or diarrhea. Onset (ago): day(s) (1) Relieving factors: none Exacerbating factors: none Associated symptoms: denies other symptoms Treatments prior to arrival: none Related Data Home Medications ?Medication ?Instructions ?Recorded ?Confirmed diazepam 5 mg tablet 5 mg PO DAILY 05/21/24 05/21/24 estradiol 2 mg tablet 2 mg PO DAILY 05/21/24 05/21/24 loratadine 10 mg tablet 10 mg PO DAILY 05/21/24 05/21/24 pantoprazole 40 mg tablet,delayed 40 mg PO DAILY 05/21/24 05/21/24 release paroxetine HCl 40 mg tablet 40 mg PO DAILY 05/21/24 05/21/24 trazodone 50 mg tablet 50 mg PO DAILY 05/21/24 05/21/24 Previous Rx's ?Medication ?Instructions ?Recorded prednisone 20 mg tablet 20 mg PO BID #10 tabs 05/21/24 Allergies Allergy/AdvReac Type Severity Reaction Status Date / Time Penicillins [PENICILLINS] Allergy Unknown Verified 08/06/23 14:05 [facility] Disclaimer: The information contained in this section may have been updated after the patient was seen, as this information can be updated by other users. Medical History (Updated 05/21/24 @ 19:41 by BRIDGETTE Flores) Depression Anxiety Lupus Surgical History (Updated 05/09/24 @ 08:18 by Tiffani Del Castillo RN) History of appendectomy History of hysterectomy History of [facility] Social History Smoking Status: Never smoker alcohol intake: never current occupational status: employed Travel in the last 8 weeks: None ROS Obtained: Yes All systems reviewed & no additional complaints except as documented Constitutional Constitutional: Reports body ache, Reports chills and Reports fever(s) Physical Exam General General appearance: alert and in no apparent distress ENT ENT exam: Present mucous membranes moist Expanded ENT Exam Nose exam: Absent sinus tenderness Throat exam: Present other (PND) Respiratory Respiratory exam: Present normal lung sounds bilaterally; Absent respiratory distress or wheezes Cardiovascular Cardiovascular exam: Present regular rate, normal rhythm and normal heart sounds Neurological Exam Neurological exam: Present alert, oriented X3 and normal gait Medical Decision Making Elan Inquiry Pt receiving controlled substance: No Lab Data Lab results reviewed: Yes I reviewed the patient's lab results.
[2024-05-21 19:33] LABS: Coronavirus 19, PCR Not Detected (NotDetected); Influenza A, PCR Not Detected (NotDetected); Influenza B, PCR Not Detected (NotDetected)
[2024-05-21 19:37] LABS: UTC Strep Screen (Rapid) Negative (Negative)
[2024-05-21] MEDS: methylPREDNISolone ACETATE 80MG/ML VIAL 80 MG IM (19:40)
[2024-05-21 19:46] VITALS: BP 122/79; PULSE 88; RESP 18; TEMP 37.1; O2SAT 100
== END 2024-05-21 19:48 | disposition home or self-care (01) ==
PROVIDERS: Emergency Provider Physician Assistant; PCP Pediatrics
DX: R50.9 Fever, unspecified (principal); R09.81 Nasal congestion; M79.18 Myalgia, other site; B34.9 Viral infection, unspecified
CPT/HCPCS: 87636; 87880; 96372; 99212; 99214; G0463; J1010

== ENCOUNTER 2024-06-06 07:57 | Emergency (ER) | payer MEDICAID, SELFPAY ==
[2024-06-06 08:05] VITALS: BP 126/79; PULSE 58; RESP 18; TEMP 36.7; O2SAT 99; BMI 24.3
[2024-06-06 08:30] LABS: UTC Strep Screen (Rapid) Negative (Negative)
--- NOTE | 2024-06-06 08:30 | ED_ITS ---
Discharge Plan Disposition Patient Disposition: Home, Self-Care Condition: Good Prescriptions Prescriptions: New doxycycline hyclate 100 mg capsule 100 mg PO BID 7 Days Qty: 14 0RF benzonatate 100 mg capsule 100 mg PO TID PRN (Reason: cough) Qty: 30 0RF methylprednisolone [Medrol (Jax)] 4 mg tablets,dose pack See Rx Instructions .Route .COMPLEX 6 Days Qty: 21 0RF Rx Instructions: taper pack; No Action trazodone 50 mg tablet 50 mg PO DAILY pantoprazole 40 mg tablet,delayed release (DR/EC) 40 mg PO DAILY estradiol 2 mg tablet 2 mg PO DAILY paroxetine HCl 40 mg tablet 40 mg PO DAILY fluticasone propionate 50 mcg/actuation spray,suspension 1 spray INTRANASAL DAILY loratadine 10 mg tablet 10 mg PO DAILY diazepam 5 mg tablet 5 mg PO DAILY Referrals Follow up/Referrals: Franklin Agudelo MD [Primary Care Provider] - See instructions Activity Restrictions/Add. Instructions Additional Instructions/Restrictions: *Monitor Temp, Over the counter Motrin or Tylenol as directed/as needed Tylenol every 4 hours and Motrin every 6 hours (as long as your family doctor has told you that you can take it) for fever or pain. and straight to ER if unable to lower temp less than 101.0 after medication given *Warm salt water gargles may help to soothe the throat *Throat Lozenges? *Warm fluids like tea with honey may help to soothe the throat? *Sleep elevated *Humidifier/Vaporizer Your throat swab was sent for culture. Those results are typically sent to your primary care. Be sure to follow up in 2-3 days with your family docto r/primary care physician if no improvement so they can review those result and treat if necessary. If you don?t have a primary care doctor, I recommend you get one but in the mean time, you will have to return to a walk in clinic Follow up IMMEDIATELY for new or worsening symptoms or no Noticeable improvement over the next 48-72 hours. 911 for difficulty breathing or swallowing Clinical Impressions Clinical Impression: Acute bronchitis Stand Alone Forms Stand Alone Forms: Work/School Release Instructions Patient Instructions: Sore Throat, Acute Bronchitis, DI for Sinusitis Print Language Print Language: Azeri Discharge ED Provider: Candy Carlos [facility] HPI General Stated complaint: sore throat, congestion Mode of Arrival: Ambulatory Source of Information: Patient Limitations: No Limitations Time Seen by Provider: 06/06/24 08:30 Description of Symptoms (Recalled from Triage Doc. by RN): PATIENT C/O SORE THROAT, COUGH WITH THICK GREEN MUCOUS, AND CONGESTION THAT STARTED THURSDAY NIGHT HEENT Symptoms (Recalled from RN notes): Yes Resp Symptoms (Recalled from RN notes): Yes Skin Symptoms (Recalled from RN notes): No MS Symptoms (Recalled from RN notes): No Functional Status (Recalled from RN notes): WNL History of Present Illness Provider Complaint: Patient states that she has been sick on and off for several weeks but Thursday she started feeling worse with cough, sore throat, chest congestion with thick green mucous and over all not feeling well states today her throat was hurting her worse so she came in to get checked Related Data Home Medications ?Medication ?Instructions ?Recorded ?Confirmed diazepam 5 mg tablet 5 mg PO DAILY 06/06/24 06/06/24 estradiol 2 mg tablet 2 mg PO DAILY 06/06/24 06/06/24 fluticasone propionate 50 1 spray intranasal DAILY 06/06/24 06/06/24 mcg/actuation nasal spray,suspension loratadine 10 mg tablet 10 mg PO DAILY 06/06/24 06/06/24 pantoprazole 40 mg tablet,delayed 40 mg PO DAILY 06/06/24 06/06/24 release paroxetine HCl 40 mg tablet 40 mg PO DAILY 06/06/24 06/06/24 trazodone 50 mg tablet 50 mg PO DAILY 06/06/24 06/06/24 Previous Rx's ?Medication ?Instructions ?Recorded benzonatate 100 mg capsule 100 mg PO TID PRN cough #30 caps 06/06/24 doxycycline hyclate 100 mg capsule 100 mg PO BID 7 days #14 caps 06/06/24 methylprednisolone 4 mg tablets in See Rx Instructions .Route 06/06/24 a dose pack (Medrol (Jax)) .COMPLEX 6 days #21 tabs Allergies Allergy/AdvReac Type Severity Reaction Status Date / Time Penicillins [PENICILLINS] Allergy Unknown Verified 08/06/23 14:05 Worker's Comp Is this a Worker's Comp case?: No [facility] Disclaimer: The information contained in this section may have been updated after the patient was seen, as this information can be updated by other users. Medical History (Updated 06/06/24 @ 08:40 by Candy Carlos APRN) Depression Anxiety Lupus Surgical History (Updated 05/09/24 @ 08:18 by Tiffani Del Castillo RN) History of appendectomy History of hysterectomy History of [facility] Social History Smoking Status: Never smoker alcohol intake: never current occupational status: employed Travel in the last 8 weeks: None ROS Obtained: Yes All systems reviewed & no additional complaints except as documented and Yes Systems reviewed as appropriate & no additional complaints except as documented Constitutional Constitutional: Reports system reviewed and no additional complaints, except as documented and Reports as per HPI ENT Ears, Nose, Mouth, and Throat: Reports system reviewed and no additional complaints, except as documented, Reports as per HPI, Reports sinus pressure and Reports sore throat Cardiovascular Cardiovascular: Reports system reviewed and no additional complaints, except as documented and Reports as per HPI Respiratory Respiratory: Reports system reviewed and no additional complaints, except as documented, Reports as per HPI, Reports chest congestion and Reports cough Gastrointestinal Gastrointestingal: Reports system reviewed and no additional complaints, except as documented and as per HPI Musculoskeletal Musculoskeletal: Reports system reviewed and no additional complaints, except as documented and Reports as per HPI Physical Exam General General appearance: alert and in no apparent distress ENT ENT exam: Present mucous membranes moist Respiratory Respiratory exam: Present normal lung sounds bilaterally; Absent respiratory distress or wheezes Cardiovascular Cardiovascular exam: Present regular rate, normal rhythm and normal heart sounds Abdominal Exam Abdominal exam: Present soft and normal bowel sounds; Absent distention or tenderness Neurological Exam Neurological exam: Present alert, oriented X3 and normal gait Medical Decision Making Elan Inquiry Pt receiving controlled substance: No Elan was queried for this patient: No Vital Signs: 06/06/24 08:05 Temperature 98.1 F Temperature Source Oral Pulse Rate [Left Brachial] 58 L Respiratory Rate 18 Blood Pressure [Left Arm] 126/79 Blood Pressure Mean [Left Arm] 94 Blood Pressure Source [Left Arm] Automatic Cuff Blood Pressure Position [Left Arm] Sitting 02 Sat by Pulse Oximetry 99 Oxygen Delivery Method Room Air Lab Data Lab results reviewed: Yes I reviewed the patient's lab results.
[2024-06-06 08:54] VITALS: BP 126/79; PULSE 58; RESP 18; TEMP 36.7; O2SAT 99
== END 2024-06-06 08:57 | disposition home or self-care (01) ==
PROVIDERS: Emergency Provider Nurse Practitioner; PCP Pediatrics
DX: J20.9 Acute bronchitis, unspecified (principal); J01.90 Acute sinusitis, unspecified; R07.0 Pain in throat; R09.81 Nasal congestion; F32.A Depression, unspecified; F41.9 Anxiety disorder, unspecified; M32.9 Systemic lupus erythematosus, unspecified
CPT/HCPCS: 87880; 99212; 99214; G0463

== ENCOUNTER 2025-01-12 17:45 | Outpatient (CLI) | payer MEDICAID, SELFPAY ==
[2025-01-12 20:38] LABS: Coronavirus 19, PCR Not Detected (NotDetected); Human Rhinovirus Not Detected (NotDetected); Influenza A, PCR Not Detected (NotDetected); Influenza B, PCR Not Detected (NotDetected); Respiratory Syncytial Virus Not Detected (NotDetected)
== END 2025-01-12 23:59 | disposition home or self-care (01) ==
LOC: LAB.DROPOF 01-13 13:05
PROVIDERS: PCP Nurse Practitioner; Visit Provider Nurse Practitioner
DX: B34.9 Viral infection, unspecified (principal)
CPT/HCPCS: 87631

== ENCOUNTER 2025-01-12 19:02 | Emergency (ER) | payer MEDICAID, SELFPAY ==
[2025-01-12 19:10] VITALS: BP 117/83; PULSE 83; RESP 24; TEMP 36.8; O2SAT 98; BMI 25.0
--- NOTE | 2025-01-12 19:10 | PC.NURSE ---
FSBS is 92.
--- NOTE | 2025-01-12 19:11 | ECG_ITS ---
APPROVED REPORT Exam: Resting ECG HR:93 bpm ECG Measurements Heart Rate 93 AXES WY 163 P 73 QRSd 94 QRS 76 QT 348 T 66 QTc 398 Conclusion Sinus rhythm Electronically signed by : SANJAY LARSEN, 01/12/2025 22:32:55
--- NOTE | 2025-01-12 19:15 | CT_ITS ---
PROCEDURE INFORMATION: Exam: CT Head Without Contrast Exam date and time: 01/12/2025 7:17 PM Age: 34 years old Clinical indication: Altered mental status/memory loss; Additional info: AMS, slurred speech, weakness, TECHNIQUE: Imaging protocol: Computed tomography of the head without contrast. Radiation optimization: All CT scans at this facility use at least one of these dose optimization techniques: automated exposure control; mA and/or kV adjustment per patient size (includes targeted exams where dose is matched to clinical indication); or iterative reconstruction. COMPARISON: CT HEAD/BRAIN WO CON 12/01/2025 19:17 FINDINGS: Brain: Evaluation for small intracranial abnormalities is limited due to patient motion artifact. Cerebral ventricles: No ventriculomegaly. Paranasal sinuses: Mild mucosal thickening in the paranasal sinuses. Mastoid air cells: Visualized mastoid air cells are well aerated. Bones: Unremarkable. No acute fracture. Soft tissues: Unremarkable. IMPRESSION: Evaluation for small intracranial abnormalities is limited due to patient motion artifact. Within limitations of the study, no acute intracranial findings. If there is high clinical suspicion for acute infarction, consider MRI for further evaluation. ASSESSMENT: ASPECTS score ([place] Stroke Program Early CT Score) is 10.
--- NOTE | 2025-01-12 19:15 | CT_ITS ---
PROCEDURE INFORMATION: Exam: CTA Neck With Contrast Exam date and time: 01/12/2025 7:20 PM Age: 34 years old Clinical indication: Convulsions / seizures; Type not specified; Additional info: AMS, slurred speech, weakness, TECHNIQUE: Imaging protocol: Computed tomographic angiography of the neck with contrast. Exam focused on the cervical segments of the vasculature. 3D rendering (Not supervised by radiologist): MIP and/or 3D reconstructed images were created by the technologist. Radiation optimization: All CT scans at this facility use at least one of these dose optimization techniques: automated exposure control; mA and/or kV adjustment per patient size (includes targeted exams where dose is matched to clinical indication); or iterative reconstruction. Contrast material: ISOVUE; Contrast volume: 80 ml; Contrast route: INTRAVENOUS (IV); COMPARISON: CT HEAD/BRAIN WO CON 12/01/2025 19:17 FINDINGS: Right common carotid artery: No stenosis. No dissection or occlusion. Right internal carotid artery: 0% stenosis of the right internal carotid artery per NASCET criteria. Right external carotid artery: No occlusion or stenosis of the origin. Left common carotid artery: No stenosis. No dissection or occlusion. Left internal carotid artery: 0% stenosis of the left internal carotid artery per NASCET criteria. Left external carotid artery: No occlusion or stenosis of the origin. Right vertebral artery: No stenosis. No dissection or occlusion. Left vertebral artery: No stenosis. No dissection or occlusion. Pharynx: Mucosal thickening and enhancement of the nasopharynx and oropharynx. Soft tissues: Normal. No significant soft tissue swelling. Bones/joints: No acute fracture. IMPRESSION: 1. No significant abnormality of the carotid and vertebral arteries. 2. Mucosal thickening and enhancement of the nasopharynx and oropharynx. Please correlate for evidence of pharyngitis. REFERENCES: NASCET CRITERIA. The degree of stenosis in the cervical segment of the internal carotid artery is based on NASCET criteria. Normal is no stenosis. Mild is less than 50% stenosis. Moderate is 50-69% stenosis. Severe is 70% to 99% stenosis. Total occlusion is no detectable patent lumen.
--- NOTE | 2025-01-12 19:15 | CT_ITS ---
PROCEDURE INFORMATION: Exam: CTA Head With Contrast, Arteriography Exam date and time: 01/12/2025 7:20 PM Age: 34 years old Clinical indication: Convulsions / seizures; Type not specified; Additional info: AMS, slurred speech, weakness, TECHNIQUE: Imaging protocol: Computed tomographic angiography of the head with contrast. Exam focused on the arteries. 3D rendering (Not supervised by radiologist): MIP and/or 3D reconstructed images were created by the technologist. Radiation optimization: All CT scans at this facility use at least one of these dose optimization techniques: automated exposure control; mA and/or kV adjustment per patient size (includes targeted exams where dose is matched to clinical indication); or iterative reconstruction. Contrast material: ISOVUE; Contrast volume: 80 ml; Contrast route: INTRAVENOUS (IV); COMPARISON: CT HEAD/BRAIN WO CON 12/01/2025 19:17 FINDINGS: ANTERIOR CIRCULATION: Right internal carotid artery: Intracranial segment is patent with no significant stenosis. No aneurysm. Right middle cerebral artery: No occlusion or significant stenosis. No aneurysm. Right anterior cerebral artery: No occlusion or significant stenosis. No aneurysm. Left internal carotid artery: Intracranial segment is patent with no significant stenosis. No aneurysm. Left middle cerebral artery: No occlusion or significant stenosis. No aneurysm. Left anterior cerebral artery: No occlusion or significant stenosis. No aneurysm. POSTERIOR CIRCULATION: Right vertebral artery: No occlusion or significant stenosis. No aneurysm. Left vertebral artery: No occlusion or significant stenosis. No aneurysm. Basilar artery: No occlusion or significant stenosis. No aneurysm. Right posterior cerebral artery: No occlusion or significant stenosis. No aneurysm. Left posterior cerebral artery: No occlusion or significant stenosis. No aneurysm. Brain: No definite mass, mass effect, or midline shift. Cerebral ventricles: No ventriculomegaly. Bones/joints: Unremarkable. No acute fracture. Soft tissues: Unremarkable. IMPRESSION: No significant intracranial arterial abnormality.
[2025-01-12 19:24] LABS: Basophils % 0.3 % (0.1-2.0); Eosinophils # 0.2 K/mm3 (0.0-0.4); Eosinophils % 1.2 % (0.1-12.0); Hematocrit 37.3 % (37.0-47.0); Lymphocytes # 1.5 K/mm3 (0.7-4.5); Lymphocytes % 11.1 % (10-50); Mean Corpuscular HGB Conc 34.9 g/dL (31.8-35.4); Mean Corpuscular Hemoglobin 32.3 pg (27.0-31.2); Mean Corpuscular Volume 92.6 fl (81-99); Mean Platelet Volume 10.7 fl (7.4-10.4); Monocytes # 0.8 K/mm3 (0.1-1.0); Neutrophils # 11.3 K/mm3 (1.8-7.8); Platelet Count 268 K/mm3 (142-424); Red Blood Count 4.03 M/mm3 (4.20-5.40); Red Cell Distribution Width 12.5 % (11.5-17.5); White Blood Count 13.9 K/mm3 (4.8-10.8)
[2025-01-12 19:27] LABS: Lactate Venous 1.6 mmol/L (0.4-2.0); VBG Base Excess -2.7 mmol/L (-2.4-2.3); VBG HCO3 23.4 mmol/L (23-30); VBG Oxygen Saturation 69.3 % (50-70); VBG PCO2 46.6 mmol/L (35-51); VBG PH 7.32 mmol/L (7.31-7.41); VBG PO2 35.6 mmol/L (28-40); VBG Total CO2 24.8 mmol/L (23-27)
[2025-01-12] MEDS: IOPAMIDOL-370 (76%);100ML BOTTLE 80 ML IV (19:27)
[2025-01-12] MEDS: 0.9 % SODIUM CHLORIDE 50 ML VIAL IV (19:27)
[2025-01-12] MEDS: SODIUM CHLORIDE 0.9% 10ML SYR (RAD ONLY) 10 ML IV (19:27)
[2025-01-12 19:30] LABS: Carbon Dioxide 26 mmol/L (22.0-30.0); Chloride 106 mmol/L (98-107); Creatine Kinase 63 U/L (30-135); Potassium 3.5 mmoL/L (3.5-5.1); Sodium 138 mmol/L (136-145)
--- NOTE | 2025-01-12 19:30 | PC.NURSE ---
Pt arrives skin pink warm and dry Resp shallow and fast Speech clear and appropriate. Pt hyperventilating. Family at bedside. Pt having tremors ccaisionally given warm blanket for comfort CT complete at 192
[2025-01-12 19:31] LABS: Alanine Aminotransferase 20 U/L (12-78); Albumin Level 4.7 g/dl (3.5-5.0); Albumin/Globulin Ratio 1.5 (1.1-1.8); Alkaline Phosphatase 51 U/L (38-126); Anion Gap 9.5 mEq/L (5-15); Aspartate Amino Transferase 23 U/L (14-36); Bilirubin,Total 0.7 mg/dl (0.2-1.3); Blood Urea Nitrogen 8 mg/dl (7-17); Creatinine Clearance Estimated 127 mL/min (50-200); Estimated Glomerular Filt Rate 95 ml/min (>60); GFR (African American) 115 ML/MIN (>60); Globulin 3.1 g/dL (1.3-3.2); Glucose 103 mg/dl (74-100); Total Protein,Serum 7.8 g/dl (6.3-8.2)
[2025-01-12 19:34] LABS: Activated Partial Thrombo Time 29.7 seconds (22.8-30.6)
[2025-01-12 19:36] LABS: C-Reactive Protein 5.7 mg/L (0-4)
[2025-01-12 19:40] LABS: Magnesium 1.9 mg/dl (1.6-2.3)
--- NOTE | 2025-01-12 19:41 | ED_ITS ---
Discharge Plan Disposition Patient Disposition: Home, Self-Care Prescriptions Prescriptions: No Action ondansetron 4 mg tablet,disintegrating 4 mg PO Q8H PRN (Reason: nausea and vomiting) Qty: 10 0RF trazodone 50 mg tablet 50 mg PO DAILY pantoprazole 40 mg tablet,delayed release (DR/EC) 40 mg PO DAILY estradiol 2 mg tablet 2 mg PO DAILY paroxetine HCl 40 mg tablet 40 mg PO DAILY loratadine 10 mg tablet 10 mg PO DAILY diazepam 5 mg tablet 5 mg PO DAILY Referrals Follow up/Referrals: Provider,Referral, MD [Referring] - See instructions Activity Restrictions/Add. Instructions Additional Instructions/Restrictions: Call your family doctor to establish care for this visit to the emergency department and schedule follow-up within 48 hours to ensure improvement. If you have any worsening of your condition or any other concerning signs or symptoms, return to the emergency department or your primary care doctor for further evaluation. Clinical Impressions Clinical Impression: Panic attack, Transient neurological symptoms Print Language Print Language: Haitian Discharge ED Provider: Leighton Wheeler General Adult HPI General Chief complaint: Neuro Symptoms/Deficit Stated complaint: Poss CVA Time Seen by Provider: 01/12/25 19:10 Mode of Arrival: Wheelchair Source of Information: Patient Description of Symptoms (Recalled from ER Triage Doc. by RN): Pt states she was at work and started feeling bad Seen at [facility] then started having this global weakness and difficuty speaking No drift appreciated Pt equally weak in arms and leg bilaterally Pt refuses to smile to assess facial droop Pt states she is having difficulty speaking but answers questions appropriately. History of Present Illness HPI narrative: Please note that above description of symptoms, in this electronic medical record under categorization of recalled from ER triage doctor by RN are reflective of an initial nursing assessment, however, is not reflective of my full history and physical exam that was personally taken and clarified. Consequentially, this preceding description of symptoms, which may include the patient's categorized chief complaint in the EMR, do not reflect my personal clinical impression, and the ultimate description of history of present illness and patient stated complaints should be deferred to this section of the note. Unless stated otherwise or congruent with this section of the note, additional signs, symptoms, or incongruence should be interpreted as inaccurate with my clinical impression. Related Data Home Medications ?Medication ?Instructions ?Recorded ?Confirmed diazepam 5 mg tablet 5 mg PO DAILY 06/06/24 01/12/25 estradiol 2 mg tablet 2 mg PO DAILY 06/06/24 01/12/25 loratadine 10 mg tablet 10 mg PO DAILY 06/06/24 01/12/25 pantoprazole 40 mg tablet,delayed 40 mg PO DAILY 06/06/24 01/12/25 release paroxetine HCl 40 mg tablet 40 mg PO DAILY 06/06/24 01/12/25 trazodone 50 mg tablet 50 mg PO DAILY 06/06/24 01/12/25 Previous Rx's ?Medication ?Instructions ?Recorded ondansetron 4 mg disintegrating 4 mg PO Q8H PRN nausea and 01/12/25 tablet vomiting #10 tabs Allergies Allergy/AdvReac Type Severity Reaction Status Date / Time Penicillins (PENICILLINS) Allergy Unknown Verified 01/12/25 17:57 [facility] Disclaimer: The information contained in this section may have been updated after the patient was seen, as this information can be updated by other users. Medical History Depression Anxiety Lupus Surgical History History of appendectomy History of hysterectomy History of [facility] Social History Smoking Status: Never smoker alcohol intake: never current occupational status: employed Travel in the last 8 weeks: None Have you lived/traveled outside [place] in past 30 days?: No Contact w/someone who lives/traveled outside US past 30 days?: No Exposure to someone with infectious disease in past 14 days?: No Do you have a fever (greater than 100.4 F or 38 C)?: No Have you tested positive for COVID-19: No Exposed to someone with COVID-19 in past 14 days?: No Do you have a sore throat?: No Do you have a cough?: No Do you have any weakness?: No Do you have any diarrhea?: No Are you experiencing any unusual bleeding?: No Do you have any muscle aches/pain?: No Do you have any abdominal pain?: No Are you experiencing loss of taste or smell?: No Other Medical History Have you received the Pneumonia Vaccine: No ROS Obtained: Yes All systems reviewed & no additional complaints except as documented Physical Exam General General appearance: alert and in no apparent distress Comment: Patient appears to be pseudoseizing. Opens eyes to command, tracks with eyes around the room, answers questions appropriately and in full sentences without dysarthria. Having intermittent full body twitches Head Head exam: atraumatic and normocephalic Eye Eye exam: Present normal appearance, PERRL and EOMI Neck Neck exam: Present normal inspection, full ROM and trachea midline Respiratory Respiratory exam: Present normal lung sounds bilaterally; Absent respiratory distress, wheezes, stridor, accessory muscle use or prolonged expiratory phase Cardiovascular Cardiovascular exam: Present regular rate, normal rhythm and other (Pulses equal symmetric in upper and lower extremities) Abdominal Exam Abdominal exam: Present soft; Absent distention, tenderness, guarding, rebound, rigidity or pulsatile mass Extremities Exam Extremities exam: Absent edema Neurological Exam Neurological exam: Present alert, oriented X3 and CN II-XII intact; Absent motor sensory deficit Skin Skin exam: Present warm and dry; Absent diaphoresis or erythema Medical Decision Making Medical Records Medical records reviewed: Yes I reviewed the patient's medical records. Screening: Per USPSTF and CDC recommendations, given the prevalence of disease in our region, it is our hospital?s policy to screen for HIV and viral Hepatitis for all patients aged 18 and over and those with ongoing risk factors. Elan Inquiry Pt receiving controlled substance: No Elan was queried for this patient: No Vital Signs: 01/12/25 19:10 01/12/25 21:29 01/12/25 21:31 Temperature 98.2 F 98.2 F 98.4 F Temperature Source Oral Oral Oral Pulse Rate 83 80 Pulse Rate [Right Brachial] 83 Respiratory Rate 24 20 20 Blood Pressure 129/87 126/70 Blood Pressure [Right Arm] 117/83 Blood Pressure Mean [Right Arm] 94 Blood Pressure Source Automatic Cuff Automatic Cuff Blood Pressure Source [Right Arm] Automatic Cuff Blood Pressure Position Sitting Sitting Blood Pressure Position [Right Arm] Supine 02 Sat by Pulse Oximetry 98 Oxygen Delivery Method Room Air Room Air Lab Data Lab Results 01/12/25 19:10: WBC 13.9 H, RBC 4.03 L, Hgb 13.0, Hct 37.3, MCV 92.6, MCH 32.3 H , MCHC 34.9, RDW 12.5, Plt Count 268, MPV 10.7 H, Neut % (Auto) 81.0 H, Lymph % (Auto) 11.1, [place] % (Auto) 6.0, Eos % (Auto) 1.2, Baso % (Auto) 0.3, Neut # (Auto) 11.3 H, Lymph # (Auto) 1.5, [place] # (Auto) 0.8, Eos # (Auto) 0.2, Baso # (Auto) 0.0, ESR 25 H, PT 10.5, INR 0.93, APTT 29.7, Sodium 138, Potassium 3.5, Chloride 106, Carbon Dioxide 26, Anion Gap 9.5, BUN 8, Creatinine 0.70, Estimated Creat Clear 127, Estimated GFR 95, Est GFR ( Amer) 115, Glucose 103 H, Calcium 9.0, Magnesium 1.9, Total Bilirubin 0.7, AST 23, ALT 20, Alkaline Phosphatase 51, Total Creatine Kinase 63, Troponin I < 0.01, C-Reactive Protein 5.7 H, Total Protein 7.8, Albumin 4.7, Globulin 3.1, Albumin/Globulin Ratio 1.5, Procalcitonin < 0.030, TSH 1.46, Thyroxine (T4) 11.6 H 01/12/25 19:16: VBG pH 7.32, VBG pCO2 46.6, VBG pO2 35.6, VBG HCO3 23.4, VBG Total CO2 24.8, VBG O2 Saturation 69.3, VBG Base Excess -2.7 L, VBG Lactic Acid 1.6 01/12/25 19:35: Lactate 1.0 01/12/25 19:10 01/12/25 19:10 Orders (Tests/Meds): ED MEDICATIONS Discontinued Medications Generic Name Dose Route Start Last Admin Trade Name Freq PRN Reason Stop Dose Admin Acetaminophen 1,000 mg 01/12/25 20:12 01/12/25 20:28 Acetaminophen 500mg Tab PO 01/12/25 20:13 1,000 mg ONCE ONE Administration Hydroxyzine Pamoate 50 mg 01/12/25 20:12 01/12/25 20:20 Hydroxyzine Pamoate 25mg Capsule PO 01/12/25 20:13 50 mg ONCE ONE Administration Sodium Chloride 1,000 mls @ 999 mls/hr 01/12/25 19:14 01/12/25 20:19 Sod Chlor 0.9% 1000ml Bag IV 01/12/25 20:14 999 mls/hr .Q1H1M ONE Administration Iopamidol 80 ml 01/12/25 19:22 01/12/25 19:27 Iopamidol-370 (76%);100ml Bottle IV 01/12/25 19:23 80 ml ONCE ONE Administration Ketorolac Tromethamine 15 mg 01/12/25 20:12 01/12/25 20:19 Ketorolac 30mg/Ml Vial IV 01/12/25 20:13 15 mg ONCE ONE Administration Lorazepam 2 mg 01/12/25 20:27 01/12/25 20:32 Lorazepam 2mg/Ml Vial IV 01/12/25 20:28 2 mg ONCE ONE Administration Sodium Chloride 50 ml 01/12/25 19:22 01/12/25 19:27 0.9 % Sodium Chloride 50 Ml Vial IV 01/12/25 19:23 50 ml ONCE ONE Administration Sodium Chloride 10 ml 01/12/25 19:22 01/12/25 19:27 Sodium Chloride 0.9% 10ml Syr (Rad Only) IV 01/12/25 19:23 10 ml ONCE ONE Administration Sodium Chloride 10 ml 01/12/25 20:27 Sodium Chloride 0.9% 10ml Vial IV 02/11/25 20:26 NEEDED PRN to Dilute Lorazepam inj ORDERS Category Date Time Status CT angio head Stat Cat Scan 01/12/25 19:[address] angio neck Stat Cat Scan 01/12/25 19:[address] head/brain wo con Stat Cat Scan 01/12/25 19:15 Completed CK [Creatine Kinase] Stat Lab 01/12/25 19:10 Completed CRP [C-Reactive Protein] Stat Lab 01/12/25 19:10 Completed Complete Blood Count Auto Diff Stat Lab 01/12/25 19:10 Completed Comprehensive Metabolic Panel Stat Lab 01/12/25 19:10 Completed ESR [Erythrocyte Sedimentation Rate] Stat Lab 01/12/25 19:10 Completed HIV Combo Routine Lab 01/12/25 19:10 Received Hepatitis C Ab Qual. W/ RFX Routine Lab 01/12/25 19:10 Received Lactic Acid Stat Lab 01/12/25 19:35 Completed Magnesium Stat Lab 01/12/25 19:10 Completed PT INR [Prothrombin Time INR] Stat Lab 01/12/25 19:10 Completed PTT [Activated Partial Thrombo Time] Stat Lab 01/12/25 19:10 Completed Procalcitonin Stat Lab 01/12/25 19:10 Completed T4 (Thyroxine) Stat Lab 01/12/25 19:10 Completed TSH [Thyroid Stimulating Hormone] Stat Lab 01/12/25 19:10 Completed Troponin I Q3H Lab 01/12/25 22:30 Ordered Troponin I Stat Lab 01/12/25 19:10 Completed Blood Culture Stat Micro 01/12/25 19:56 Received Venous Blood Gas Stat RT 01/12/25 19:16 Completed Medical Decision Narrative: 34-year-old female history of SLE, total hysterectomy on estrogen replacement therapy presenting with slurred speech and full body shaking. Started about 2 hours prior to this. She was at the store when family states that she started having slurred speech. Shortly thereafter started having the full body shaking. Family insisted and brought her to the emergency department. On arrival, patient alert and oriented and states that she has pain everywhere. No chest pain, shortness of breath, also states that she is having blurry vision. No abdominal pain, fevers, chills, neck stiffness, or any other concerns at this time. History was obtained via conversation with patient and family. On arrival, patient hemodynamically stable, alert, oriented x4, appropriate, GCS 15, moving all extremities spontaneously, pupils equal and reactive to light. Full physical exam performed and significant for clinically well-appearing female who appears anxious, she is tearful. Appears to be having pseudoseizures versus some other neurologic movement disorder. Intermittently having full body shakes, with dysarthria or aphasia, pupils equal and reactive, tracking eye movements with EOMs intact. Lungs are clear, cardiac exam without murmurs gallops or rubs. Abdomen soft, nontender, nondistended. No lower extremity edema. Pulses equal and symmetric in upper and lower extremities. Patient diffusely weak, I feel this is likely due to lack of effort. Able to follow commands with bilateral upper and lower extremities symmetrically. Answering questions in full sentences. Differential includes pseudoseizure, metabolic abnormality, hypoglycemia, other metabolic abnormality, endocrinologic abnormality, CVA, intracranial hemorrhage, lupus cerebritis, new onset seizure disorder, among others. Patient placed on continuous cardiac monitoring and continuous pulse ox with initial blood pressure 117/83, heart rate 83, saturation 98% on room air. Independent interpretation of EKG shows sinus rhythm 93 bpm with AK 163, QRS 94, QTc 398. Normal axis and no acute ischemic change. Patient was given fluids for symptomatic management and correction of underlying abnormalities. CT angiogram of the head and neck as well as CT head were independently interpreted. No intracranial hemorrhage. No obvious vascular abnormality about the head or neck. Workup independently interpreted and significant for mild leukocytosis. Nonactionable coags or inflammatory markers. Nonactionable VBG or chemistry. Thyroid studies nonactionable as well. On reevaluation, patient said this is similar to her typical panic attacks. Because having acute panic attack, 2 mg of Ativan, hydroxyzine were added. On reevaluation, feeling much better. Was recommended that she follow-up with her family doctor and psychiatry in order to have meds adjusted. She is taking paroxetine and diazepam 3 times daily. Given patient presentation, workup, history, this most likely represents acute stress reaction and panic attack. Because patient at baseline without signs or symptoms of clinical decompensation, deemed appropriate for discharge. Results were relayed to patient who voiced understanding and were agreeable to outpatient management and follow up. I discussed my clinical impression with patient and answered all questions. At this time, the evidence for any other entities in the differential is insufficient to warrant any further testing or ED observation. This was explained as well. Advisory was given that persistent or worsening symptoms require further evaluation. I confirmed the understanding of this discussion. 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 Electronic order packer of the spoken language may permit errors. Although I have reviewed the note, some errors may still exist. Critical Care Critical Care Time Critical Care Time: No
[2025-01-12 19:44] LABS: Troponin I < 0.01 ng/ml (0.00-0.034)
[2025-01-12 19:46] LABS: Erythrocyte Sedimentation Rate 25 mm/hr (0-20)
[2025-01-12 19:48] LABS: T4 (Thyroxine) 11.6 ug/dl (5.53-11.0)
[2025-01-12 19:51] LABS: Procalcitonin < 0.030 ng/mL (0.0-2.0)
[2025-01-12 19:55] LABS: INR 0.93 (0.9-1.1); Prothrombin Time 10.5 seconds (10.1-12.5)
--- NOTE | 2025-01-12 19:59 | PC.NURSE ---
Collected 2 sets of blood cultures and sent to lab.
[2025-01-12 20:02] LABS: Thyroid Stimulating Hormone 1.46 uIU/mL (0.465-4.68)
[2025-01-12] MEDS: KETOROLAC 30MG/ML VIAL 15 MG IV (20:19)
[2025-01-12] MEDS: 0.9 % SODIUM CHLORIDE 1000ML 1,000 ML 999 ML IV (20:19)
[2025-01-12] MEDS: hydrOXYzine pamoate 25MG CAPSULE 50 MG PO (20:20)
[2025-01-12] MEDS: ACETAMINOPHEN 500MG TAB 1000 MG PO (20:28)
[2025-01-12] MEDS: LORazepam 2MG/ML VIAL 2 MG IV (20:32)
--- NOTE | 2025-01-12 21:03 | PC.NURSE ---
Pt resting quietly able to speech without difficulty now
[2025-01-12 21:29] VITALS: BP 129/87; PULSE 83; RESP 20; TEMP 36.8; O2SAT 99
[2025-01-12 21:31] VITALS: BP 126/70; PULSE 80; RESP 20; TEMP 36.9; O2SAT 98
[2025-01-12 21:42] LABS: HIV Combo NEGATIVE (Negative)
[2025-01-12 21:50] LABS: Hepatitis C Ab Qual. W/ RFX NEGATIVE (Negative)
== END 2025-01-12 21:37 | disposition home or self-care (01) ==
PROVIDERS: Emergency Provider Emergency Medicine; PCP Pediatrics
DX: F41.0 Panic disorder [episodic paroxysmal anxiety] (principal); R29.818 Other symptoms and signs involving the nervous system; R53.1 Weakness; R47.89 Other speech disturbances; R25.9 Unspecified abnormal involuntary movements
CPT/HCPCS: 70450; 70496; 70498; 80053; 82550; 82803; 83605; 83735; 84145; 84436; 84443; 84484; 85025; 85610; 85651; 85730; 86140; 86803; 87040; 87389; 93005; 96361; 96374; 96375; 99285; J1885; J2060; J7030; Q9967

== ENCOUNTER 2025-03-21 15:25 | Outpatient (CLI) | payer MEDICAID, SELFPAY | END 2025-03-21 23:59 | disposition home or self-care (01) | LOC: LAB.DROPOF 03-22 10:24 | PROVIDERS: PCP Nurse Practitioner Family; Visit Provider Nurse Practitioner Family | DX: N39.0 Urinary tract infection, site not specified (principal); B96.20 Unspecified Escherichia coli [E. coli] as the cause of diseases classified elsewhere | CPT/HCPCS: 87086; 87088; 87186 ==

== ENCOUNTER 2025-04-12 13:30 | Outpatient (CLI) | payer MEDICAID, SELFPAY | END 2025-04-12 23:59 | disposition home or self-care (01) | LOC: LAB.DROPOF 04-13 09:53 | PROVIDERS: PCP Family Medicine; Visit Provider Family Medicine | DX: R39.9 Unspecified symptoms and signs involving the genitourinary system (principal) | CPT/HCPCS: 87086 ==

== ENCOUNTER 2025-04-14 11:43 | Emergency (ER) | payer MEDICAID, SELFPAY ==
[2025-04-14] VITALS (8 sets, daily range): BP systolic 99–124; BP diastolic 62–79; PULSE 46–63; RESP 18–20; TEMP 36.5–37.1; O2SAT 97–100; BMI 22.8
--- OUTSIDE RECORDS SUMMARY | 2025-04-14 11:57 | XMS_ITS | Data Portability ---
Author Organization DOT - STEPHON Anderson PAWNEE CLOSED Address [address] [place] [address] [address] [place] [address] Care Team Providers Care Riverboat Captain Name Role Phone JAZMYN PARKS Neurologist DONALD STEPHENS Stacker Operator Assessment Encounter Date Assessment Date Assessment LastModified by Organization Details LastModified Time 07/27/2019 07/27/2019 1. Frequent migrainous headaches. Topamax was not helpful, though I am not sure she took that long enough to be able to say. 2. Recent episode of lost consciousness. This sounds most consistent with brief syncope as she had premonitory lightheadedness and was not out long. She has h/o rare vasovagal syncope in the past. Her BP runs low at baseline, often 90s systolic in the computer, and so that may have contributed. Doubt seizure. Discussed. For the headaches, will try Ajovy if this is covered by insurance. Will also try Relpax prn. I think this was brief syncope and not seizure but will arrange for EEG [email or web address] Not available 07/27/2019 17:27:43 Plan of Treatment Reminders Order Date Submit Date Provider Last Modified By Organization Details Last Modified Time Details Appointments None recorded. Lab sjogren antibody panel, serum 2019 020 [facility], [address] [place] [address] [address] Altman[place]abel [place], [id number], 0 08:48:32 coello Ab + manager adobe Ab, serum 2019 020 [facility], [address] [place] [address] [address] Jaycob G-Marisabel Lopez [place], [id number], 0 08:48:33 dsDNA Ab, serum [address], [address] [place] [address] E Marisabel Feliciano [place], [id number], 0 08:48:33 centromere Ab, serum [address], [address] [place] [address] E Marisabel Fel[place], [id number], 0 08:48:33 C4 (complemen t), serum or plasma [address], [address] [place] [address] E Marisabel Fel[place], [id number], 0 08:48:33 C3 (complemen t), serum or plasma [address], [address] [place] [address] E Marisabel [place], [id number], 0 08:48:33 scleroderm a (scl-70) Ab, serum [address], [address] [place] [address] E Marisabel Felician[place], [id number], 0 08:48:33 ccp (cyclic citrullina jm peptide) iga+igg, serum [address], [address] [place] [address] E Marisabel Feliciano [place], [id number], 0 08:48:33 rf (rheumatoi d factor), serum [address], [address] [place] [address] E Marisabel eFliciano [place], [id number], 0 08:48:34 ESR (erythrocy te sedimentat ion rate), blood 2019 [facility], [address] [place] [address] E Marisabel Feliciano [place], [id number], 0 14:08:23 C reactive protein, QN, serum or plasma 2019 [facility], [address] [place] [address] [address] Mar[place] Fel[place], [id number], 0 15:12:38 uric acid, serum or plasma 2019 [facility], [address] [place] [address] [address] Maris[place] Feliciano [place], [id number], 0 15:12:38 Referral None recorded. Procedures electroenc ephalogram (EEG); including recording awake and drowsy (PROC) 2018 [email or web address] Not available 9 09:59:09 Surgeries None recorded. Imaging holter monitor 2018 [email or web address] [facility], [address], [facility], [place], [address], 9 14:51:57 Medication Orders Ajovy Syringe 225 mg/1.5 mL subcutaneo 2018 [facility], [address] [facility] [address] [place], [id number], 0 11:00:55 Relpax 40 mg tablet 2018 [facility], [address] [facility] [address] [place], [id number], 0 11:02:37 Patient TargetsNo targets recorded. Patient Instructions Encounter Date Encounter Id Patient Instructions Last Modified By Organization Details Last Modified Time 07/27/2019 [id number] palpitations: care instructions [email or web address] Not available 07/27/2019 12:00:33 Reason for Referral None Reported. Results Created Date Observation Date Name Description Value Unit Range Abnormal Flag Note LastModifiedBy Organization Detail LastModifiedTime 07/06/20 19 07/06/2019 TSH, serum or plasm a TSH 1.650 uIU/m L 0.290- 5.500 normal Not Available [facility] [address] [place], [address], 07/06/2019 10:50:52 07/11/20 19 12/18/2017 padmini r monit or No observ ation record ed. [email or web address] [facility] (Registration ) [id number] [facility], [place], [address], 07/13/2019 08:47:35 07/15/20 19 07/11/2019 elect giovani stoutgr am No observ ation record ed. [email or web address] [facility] [address] [facility], [place], [address], 07/15/2019 08:55:04 07/15/20 19 07/11/2019 padmini r monit or No observ ation record ed. [email or web address] Donald Stephens MD [address] [facility], [place], [address], 07/15/2019 14:58:17 Result Notes None recorded. Problems Name Problem SNOMED Code Status Onset Date Resolution Date Notes Provider Name and Address Organization Details Recorded Time Migraine with aura 8656756 Active 017 LUPE MICHAEL APRN [address] [place], [address] , [facility] 7 20:57:17 Pain of multiple joints 34468112 Active 017 LUPE MICHAEL SEAMER PANTY HOSE [address] [place], [address] , [facility] 7 20:57:18 Anti-nucle ar factor detected 753293676 Active 019 LUPE MICHAEL, SEAMER PANTY HOSE [address] [place], [place], [address] [place] [address] , [facility] 9 08:15:55 Problem Notes None recorded. Procedures Surgical History Date Name Laterality Status Provider Name and Address Organization Details Recorded Time 07/27/20 19 Echocardiogram completed DONALD STEPHENS MD [address] [place], [place], [address] [place] [address] 07/27/2019 12:51:55 05/27/20 18 Diffusion Capacity completed JUNE CLARK PA-C [address] [place] [address], [address] [place] [address] 05/27/2018 15:52:14 05/27/20 18 Lung Volumes, Plethysmography completed JUNE CLARK PA-C [address] [place], [place], [address] [place] [address] 05/27/2018 15:52:30 05/27/20 18 Spirometry with Bronchodilator completed JUNE CLARK PA-C [address] [place] [address], [address] [place] [address] 05/27/2018 16:29:17 Controller Mechanic Surgery completed [facility] 11/10/2017 09:44:38 Remove tonsils and adenoids completed [facility] 11/10/2017 09:44:10 Breast Surgery completed [facility] 11/10/2017 09:44:24 Imaging Results None recorded. Procedure Notes None recorded. Medical Equipment None Reported. Allergies Allergen ID Allergen Name Allergen Category Reaction Reaction Severity Criticality Documentation Date Start Date Code Code System Note Provider Name and Address Organization Details Recorded Time 731829 Product containin g penicilli n (product) medicatio n Not available Not available Not available 06/18/2017 17088 8001 SNOMED Carolina Fawn [facility] 7 10:27:46 881851 influenza virus vaccine, specific Not available rash respirato ry distress severe severe Not available 04/12/2019 50408 UNK La Elias Ernie [facility] 9 08:01:43 Medications Name Sig Start Date Stop Date Status Note LastModified by Organization Details LastModified Time methocarbam ol 500 mg tablet TAKE ONE TABLET BY MOUTH FOUR TIMES A DAY 05/14 completed Not Available Not Available Not Available ofloxacin 0.3 % eye drops 04/12 completed Not Available Not Available Not Available hydrocodone 5 mg-acetamin ophen 325 mg tablet 06/18 completed Not Available Not Available Not Available phenazopyri dine 200 mg tablet 06/18 completed Not Available Not Available Not Available prednisone 20 mg tablet 05/14 completed Not Available Not Available Not Available prednisone 5 mg tablet take one po tid x 1 week; one po bid x 1 week then one po daily x 1 week 11/10 completed Not Available Not Available Not Available sumatriptan 50 mg tablet Take by oral route. 05/27 completed Not Available Not Available Not Available topiramate 25 mg tablet 1 at hs x two weeks, then increase to 2 at hs 05/14 completed Not Available Not Available Not Available amitriptyli ne 50 mg tablet TAKE ONE TABLET BY MOUTH ONCE A DAY active Not Available Not Available No t Available amitriptyli ne 25 mg tablet Take 1 tablet every day by oral route. 05/04 completed Not Available Not Available Not Available phenazopyri dine 100 mg tablet 05/14 completed Not Available Not Available Not Available paroxetine 20 mg tablet one tablet daily active Not Available Not Available No t Available pantoprazol e 40 mg tablet,latesha yed release prn 05/14 completed Not Available Not Available Not Available oseltamivir 75 mg capsule 04/12 completed Not Available Not Available Not Available estradiol 2 mg tablet active Not Available Not Available No t Available hydrocortis one 2.5 % topical cream 05/14 completed Not Available Not Available Not Available hydroxychlo roquine 200 mg tablet Take 1 tablet every day by oral route. active Not Available Not Available No t Available ibuprofen 600 mg tablet 05/04 completed Not Available Not Available Not Available ondansetron 4 mg disintegrat ing tablet 07/28 completed Not Available Not Available Not Available diazepam 5 mg tablet TID active Not Available Not Available No t Available rizatriptan 5 mg tablet one at onset of migraine; may repeat in 2 hours if neededmax 2 in 24 hrs 05/14 completed Not Available Not Available Not Available Relpax 40 mg tablet one at onset of migraine, may repeat in 2 hours if neededmax 2 in 24 hrs 05/14 completed Not Available Not Available Not Available nitrofurant oin monohydrate /macrocryst als 100 mg capsule 05/14 completed Not Available Not Available Not Available Ajovy Syringe 225 mg/1.5 mL subcutaneou s one per month 05/14 completed Not Available Not Available Not Available Vitals Date Recorded Body height Provider Name an d Address Organization Details Last Updated DateTime 05/14/2020 170.18 cm LUPE ALEC, SEAMER PANTY HOSE [address] [place], [address], [facility] 05/14/2020 10:58:02 Date Recorded Body height Body mass index (BMI) Body weight Heart rate Systolic blood pressure Diastolic blood pressure Systolic blood pressure Diastolic blood pressure Systolic blood pressure Diastolic blood pressure Provider Name and Address Organization Details Last Updated DateTime 9 170.18 cm 21.3 kg/m2 16149.5 6 g 57 /min 100 mm[Hg] 70 mm[Hg] 92 mm[Hg] 78 mm[Hg] 92 mm[Hg] 66 mm[Hg] Sona Holley [facility] 9 10:10:02 Date Recorded Body height Body mass index (BMI) Body weight Heart rate Systolic blood pressure Diastolic blood pressure Provider Name and Address Organization Details Last Updated DateTime 9 170.18 cm 21.3 kg/m2 06394.5 6 g 58 /min 98 mm[Hg] 60 mm[Hg] Beryl Gonzalez [facility] 9 11:08:33 Date Recorded Body height Body mass index (BMI) Body weight Systolic blood pressure Diastolic blood pressure Provider Name and Address Organization Details Last Updated DateTime 07/27/2019 170.18 cm 21.3 kg/m2 01353.5 6 g 142 mm[Hg] 82 mm[Hg] Kadie Bernstein [facility] 9 15:58:56 Social History Question Answer Notes LastModified by Organizat ion Details LastModified Time Tobacco Smoking Status Never Smoker Carolina knox [facility] 06/18/2017 10:28:15 How Much Tobacco Do You Chew? None [email or web address] Information not available 04/12/2019 Which Illicit Or Recreational Drugs Have You Used? None [email or web address] Information not available 07/27/2019 Live Alone Or With Others? With Others Information not available 05/27/2019 Marital Status [email or web address] Informat ion not available 05/27/2019 What Was The Date Of Your Most Recent Tobacco Screening? 07/11/2019 Information not available 07/11/2019 How Many Children Do You Have? 3 Information not available 07/11/2019 How Much Tobacco Do You Smoke? No Information not available 04/12/2019 How Many Years Have You Smoked Tobacco? 0 [email or web address] Information not available 04/12/2019 Sex: Unknown Functional Status Question Answer Note LastModified by Organizat ion Details LastModified Time What is your level of alcohol consumption? Occasional Information not available 05/27/2019 Do you or have you ever used smokeless tobacco? Never used smokeless tobacco Information not available 07/06/2019 Do you or have you ever used e-cigarettes or vape? Never used electronic cigarettes Information not available 07/06/2019 Mental Status None recorded. Family History Relationship Description Onset Age of this Age Resolved Age Notes LastModified by Organization Details LastModified Time Son Allergic rhinitis [email or web address] Not available 11/2017 14:59:23 Mother Chronic obstructive pulmonary disease [email or web address] Not available 11/2017 14:59:33 Maternal Grandfather Heart disease [email or web address] Not available 2018 10:00:23 Maternal Grandfather Kidney disease [email or web address] Not available 2018 10:00:41 Maternal Grandfather Family history of malignant neoplasm [email or web address] Not available 2018 10:00:51 Maternal Grandfather Congestive heart failure [email or web address] Not available 2018 10:01:13 Paternal Grandfather Heart disease [email or web address] Not available 2018 10:00:23 Father Irregular heart beat [email or web address] Not available 07/11 10:03:10 Medical History Condition Response Emphysema N Depression Y COPD N Anxiety Disorder Y Arthritis N Acid Reflux (GERD) N Rheumatoid Arthritis N Migraines Y Diabetes N Bleeding Disorder N Hyperlipidemia N Asthma N Heart Disease N Hypertension N Gynecological HistoryNo gynecological history recorded. Obstetrics History GPAL:G 0 P 0 0 0 0 Immunizations Vaccine Type Date Status Note Provider Nam e and Address Organization Details Recorded Time Influenza, split virus, quadrivalent, preservative 7 completed Nimisha Siegel [facility] 05/27/2018 14:59:06 Influenza, split virus, quadrivalent, preservative 8 completed Shelia Klein [facility] 04/12/2019 08:00:34 Past Encounters Encounter ID Performer Location Encounter Start Date Encounter Closed Date Diagnosis/Indication Diagnosis SNOMED-CT Code Diagnosis ICD10 Code Diagnosis Note [id number] [place] [address] 06/18/2017 09:25:11 06/18/2017 11:53:26 Anti-nuclear factor detected 729805733 R76.8 reported by pcp for referralha d ancas done with pcp which were sent and are negativeal l other labs were negativewi thout synovitis and dactylitis no rashwill obtain lupus specific labs Pain of mu ltiple joints 97671668 M25.50 chronic and recurringw ithout synovitis or dactylitis will assess inflammati on markersnor mal systemic examinatio n [id number] LUPE MICHAEL APRN [place] [address] 07/28/2017 15:30:12 07/29/2017 11:23:50 Migraine with aura 3350231 G43.109 recurring migrainesw ith seeing stars or sparkles before the migraine Pain of mu ltiple joints 36252388 M25.50 chronic and recurringw ithout obvious synovitis or dactylitis will assess inflammati on markerswor sening pains warrant further studies and will be beneficial to do a prednisone trial [id number] LUPE MICHAEL APRN [place] [address] 08/27/2017 13:33:49 08/27/2017 15:51:34 Smooth muscle spasm 600774606 M62.838 chronic and recurring with muscle spasm and myalgiasal peyman with recurring worsening headachesw ill initiate a muscle relaxer as written Anti-nucle ar factor detected 897701323 R76.8 reported by pcp for referralha d ancas done with pcp which were sent and are negativeal l other labs were negativewi thout synovitis and dactylitis no rashwill obtain further lupus panel which have not been obtained after further discussion about positive raynaud's Raynaud's disease 596525 006 I73.00 Muscle pain 29006252 M79 .1 [id number] LUPE MICHAEL APRN [facility] [address] [place] [address] 11/10/2017 09:35:14 11/10/2017 10:16:45 Anti-nuclear factor detected 174490683 R76.8 had ancas done with pcp which were sent and are negativeal l other labs were negativewi thout synovitis and dactylitis no rashfurthe r lupus panel was normal/neg ativewill reassess if further symptoms arisefamil y hx of lupus and RA Smooth muscle spasm 1285 61629 M62.838 chronic and recurring with muscle spasm and myalgiasal peyman with recurring worsening headachesi mproved overall; continue muscle relaxer as written Raynaud's disease 441612 006 I73.00 use warming measuresin crease to taking aspirin daily 81 mg coated Muscle pain 81236537 M79 .1 chronic and recurringi mproved after starting on amitriptyl ine, but feeling like it is no longer working the way it wasstarted her on a low dosewill increase to 50 mg daily dose todaydiscu ssed with patient [id number] LUPE MICHAEL APRN [facility] [address] [place] [address] 05/04/2018 10:52:20 05/04/2018 11:51:49 Muscle pain 14826919 M79.1 chronic and recurringi mproved after starting on amitriptyl ine, but feeling like it is no longer working the way it wasstarted her on a low dosecontin ue with 50 mg daily dose today Smooth muscle spasm 1285 23437 M62.838 chronic and recurring with muscle spasm and myalgiasal peyman with recurring worsening headachesi mproved overall; continue muscle relaxer as written Anti-nucle ar factor detected 215355010 R76.8 had ancas done with pcp which were sent and are negativeal l other labs were negative except for the mariely at 1:640 homogenous and speckledwi thout synovitis and dactylitis no rashfurthe r lupus panel was normal/neg ative, but after a year will need further re-assessm ent todayfamil y hx of lupus and RA Raynaud's disease 230770 006 I73.00 use warming measuresin crease to taking aspirin daily 81 mg coated Fatigue 00752451 R53.83 worsening fatigue working 9-5 and is fine with going to bed at 7 or 8 without feeling like she is rested she will need further assessment today for this Chronic diarrhea 3356090 09 K52.9 grandfathe r with crohns and pancreatit is she reports she is having worsening weakness, fatigue along with increased diarrhea needs further gi assessment Recurrent urinary tract infection 202058329 N39.0 Dyspnea on exertion 6084 5006 R06.09 Palpitations 92171647 R0 0.2 recurring dizziness h/o hr increased to 195 at times; at rest 104 with feeling palpitatio ns needs cardiology referral cxr and labs today Proteinuria 53672423 R80 .9 [id number] JUNE CLARK PA-C PULMONARY [address] [facility], [address] [place] [address] 05/27/2018 13:44:48 05/28/2018 08:42:50 Dyspnea 887490189 R06.00 PFTs show poor effort on spirometry . Flow volume loops show no evidence of obstructio n. I do not see any pulmonary cause for patient's dyspnea. She reports that her dyspnea appears to be secondary to heart palpitatio ns and related to anxiety. Chest x-ray shows no acute cardiopulm onary changes. There is no cough, sputum production , or wheezing. She has an appointmen t scheduled with cardiology . I will see her after this. I did not start any medication s today. Her symptoms do not appear to be consistent with asthma. [id number] LUPE MICHAEL APRN [facility] [address] [place] [address] 04/12/2019 07:42:49 04/13/2019 12:07:18 Anti-nuclear factor detected 733388055 R76.8 had ancas done with pcp which were sent and are negativeal l other labs were negative except for the mariely at 1:640 homogenous and speckledwi thout synovitis and dactylitis no rashfurthe r lupus panel was normal/neg ative, but after a year will need further re-assessm ent todayfamil y hx of lupus and RAwith worsening s/s since last visit suggesting autoimmune so we will start her on plaquenil and see if it helps to relieve her s/s Muscle pain 38097794 M79 .10 chronic and recurringi mproved after starting on amitriptyl ine, but feeling like it is no longer working the way it wasstarted her on a low dosecontin ue with 50 mg daily dose today Smooth muscle spasm 1285 07633 M62.838 chronic and recurring with muscle spasm and myalgiasal peyman with recurring worsening headachesi mproved overall; continue muscle relaxer as written Raynaud's disease 588809 006 I73.00 use warming measuresin crease to taking aspirin daily 81 mg coated Fatigue 08656491 R53.83 worsening fatigue working 9-5 and is fine with going to bed at 7 or 8 without feeling like she is rested she will need further assessment today for this Chronic diarrhea 6498359 09 K52.9 grandfathe r with crohns and pancreatit is she reports she is having worsening weakness, fatigue along with increased diarrhea needs further gi assessment Recurrent urinary tract infection 219348430 N39.0 Dyspnea on exertion 6084 5006 R06.09 seen by pulmonary Palpitations 56682803 R0 0.2 recurring dizziness h/o hr increased to 195 at times; at rest 104 with feeling palpitatio ns needs cardiology referral cxr and labs today Proteinuria 32156960 R80 .9 Migraine 96375680 G43.90 9 chronic and recurring migraines with weakness and myalgia worsening [id number] JAZMYN PARKS MD NEUROLOGY [facility] [address] [place] [address] 05/27/2019 08:01:02 05/27/2019 09:23:08 Chronic intractable migraine without aura 6159973040 48671 G43.438 [id number] ELIAS DONG MD [facility] [address] [place] [address] 07/06/2019 08:40:56 07/08/2019 12:43:19 Syncope 012902252 R55 28-year-ol d female seen today as a work in for evaluation of a syncopal episode which happened yesterday while she was in a parking lot. The episode was rather sudden without any chest pain or shortness of breath. However she does give history of intermitte nt palpitatio ns with at times rapid heart rate up to 150. Clinically she does not have any evidence to suggest atrial fibrillati on. Her heart rate today is physiologi c. There is no significan t postural hypotensio n as her sitting blood pressure was 104 systolic and standing 115. The diastolic blood pressure on sitting was 70 and standing was 83. The heart rate was without any significan t change. Her clinical examinatio n including both cardiovasc ular as well as neurologic is nonfocal. At this time, she needs both cardiology and neurology evaluation for syncopal workup. Certainly my clinical impression is more towards cardiac arrhythmia especially with her history of episodic rapid heart rates. I also obtained a thyroid profile. She will keep her follow-up with Lupe Michael as planned. [id number] DONALD STEPHENS MD CARDIOLOG Y [address] [place] [address] 07/11/2019 09:17:15 07/11/2019 11:25:03 Syncope 463255872 R55 -Etiology unclear, may be related to her symptoms of tachyarrhy thmia -12 lead EKG shows sinus tachycardi a with normal intervals and no evidence of pre-excita tion -No prior history of structural heart disease, no family history of SCD. RECOMMENDA TIONS: -Given history of lupus, will schedule TTE to exclude cardiac involvemen t (valves, pericardiu m) -Will place 48 hour Holter given daily symptoms (as reported by patient) -Follow-up 2-3 weeks. Further recommenda tions to follow after review of above. Palpitations 27333186 R0 0.2 -Etiology unclear, but given frequency and duration of symptoms (10min at a time), there is a concern for a re-entrant tachycardi a. No evidence of preexcitat ion on resting 12-lead EKG. -Possible contributi ng factors of heavy caffeine use (6+ Mtn Dew daily) and multiple medication s associated with arrhythmia -Further recommenda tions to follow after review of TTE/Holter . Systemic l upus erythematosus 12048291 M32.9 -Follows with Dr Dong, currently on hydroxychl oroquine [id number] DONALD STEPHENS MD [facility] [address] [place] [address] 07/11/2019 10:54:39 07/11/2019 10:55:13 Syncope 818106699 R55 -Etiology unclear, may be related to her symptoms of tachyarrhy thmia -12 lead EKG shows sinus tachycardi a with normal intervals and no evidence of pre-excita tion -No prior history of structural heart disease, no family history of SCD. RECOMMENDA TIONS: -Given history of lupus, will schedule TTE to exclude cardiac involvemen t (valves, pericardiu m) -Will place 48 hour Holter given daily symptoms (as reported by patient) -Follow-up 2-3 weeks. Further recommenda tions to follow after review of above. [id number] DONALD STEPHENS MD CARDIOLOG Y [address] ,[address] [place] [address] 07/27/2019 10:07:09 07/27/2019 11:28:32 Syncope [id number] R55 -Etiology unclear, likely related to intravascu lar volume depletion related to heavy caffeine intake -12 lead EKG shows sinus tachycardi a with normal intervals and no evidence of pre-excita tion -No prior history of structural heart disease, no family history of SCD. -Normal TTE and Holter with rare PAC activity, no runs. Palpitations 21754601 R0 0.2 -Etiology unclear, rare PAC activity on recent Holter. Normal TTE. -Possible contributi ng factors of heavy caffeine use (6+ Mtn Dew daily) and multiple medication s associated with arrhythmia RECOMMENDA TIONS: -I have strongly encouraged her to reduce the amount of caffeinate d drinks that she ingests, and she certainly needs to increase her free water intake. Serial office visits have all documented hypotensio n, and this is likely the stacker driver behind her recent syncopal spell. -At this stage, she may continue her current medication s, however if syncope were to recur she will require a period of prolonged monitoring and these drugs may need to be readjusted /discontin ued. -I have asked that she follow-up in [facility] 3 months, although she knows to call the office if syncope or prolonged palpitatio ns were to recur. Systemic l upus erythematosus [id number] M32.9 -Follows with Dr Dong, currently on hydroxychl oroquine [id number] DONALD STEPHENS MD ECHO VASCULAR LAB [address] [place] [address] 07/27/2019 10:09:07 07/27/2019 16:35:15 Palpitations 22506904 R00.2 -Etiology unclear, but given frequency and duration of symptoms (10min at a time), there is a concern for a re-entrant tachycardi a. No evidence of preexcitat ion on resting 12-lead EKG. -Possible contributi ng factors of heavy caffeine use (6+ Mtn Dew daily) and multiple medication s associated with arrhythmia -Further recommenda tions to follow after review of TTE/Holter . Syncope 427021274 R55 -Etiology unclear, may be related to her symptoms of tachyarrhy thmia -12 lead EKG shows sinus tachycardi a with normal intervals and no evidence of pre-excita tion -No prior history of structural heart disease, no family history of SCD. RECOMMENDA TIONS: -Given history of lupus, will schedule TTE to exclude cardiac involvemen t (valves, pericardiu m) -Will place 48 hour Holter given daily symptoms (as reported by patient) -Follow-up 2-3 weeks. Further recommenda tions to follow after review of above. [id number] JAZMYN PARKS MD NEUROLOGY [facility] [address] [place] [address] 07/27/2019 14:51:03 07/27/2019 16:41:34 Migraine with aura 2492130 G43.109 Syncope [id number] R55 [id number] LUPE MICHAEL APRN RHEUMATOL OGY [address] [place] [address] 05/14/2020 08:04:21 05/14/2020 11:32:15 Anti-nuclear factor detected 203496549 R76.8 had ancas done with pcp which were sent and are negativeal l other labs were negative except for the mariely at 1:640 homogenous and speckledwi th recent recurring rashes head to toe; having increased joint pain and tenderness ; having swelling in the hands and wrists bilaterall yhistorica lly positive mariely with negative lupus panel with low complement s; started on plaquenil in the past and was improved overall though has been off of it for a while nowfamily hx of lupus and RAwill obtain further labs today [facility]; will review and will discuss treatment plans with her [facility] within 2 weeks after the labs are drawn if she has not heard from me Pain of mu ltiple joints 05702885 M25.50 chronic and recurringw ithout obvious synovitis or dactylitis will assess inflammati on markerswor sening pains warrant further studies based on her family history and reports of rashes and swelling in the joints Health Concerns Section Related Observation LastModified by Organization Detai ls LastModified Time None Recorded Concern Status LastModified by Organization Details LastModified Time None Recorded Advance Directives Directive None Recorded Payers Insurance Date Sequence Insurance Name Policy Number Policy Grover Covered Member ID Grover Member ID Guarantor Name 04/14/2025 1 [employer] [place]MEDICA[place]AC[place] - HMO) Shannen Chambers [id number] Shannen Chambers 05/24/2024 1 [employer] Shannen Chambers [id number] Maday Chambers 05/24/2024 2 [employer] (PPO) Shannen Chambers [id number] Shannen Chambers 05/24/2024 1 [employer] [place] - [place]) CS[place] Shannen Chambers [id number] Shannen Chambers Notes Date Note Type Note Provider Name and Address Organization Details Recorded Time 07/11/2019 text/html Ms Shannen Chambers is a 28-year-old woman being seen at the request of Dr. Dong, regarding a recent episode of syncope. She states that she was diagnosed with lupus approximately one year ago. She was started on hydroxychloroquine a few months ago. She complains of ongoing arthralgia, but is unaware of any non-joint manifestations of her lupus. She was seen on 07/06/19 as a work in after having a episode of syncope the day prior. She reports that she was in her normal state of health that day (07/05/19), and had breakfast as usual. She lives on the third floor apartment, and walked down the stairs to her vehicle. As she arrived at her vehicle, she felt her vision became black and had a brief loss of consciousness. She sustained some scabbing and bruising on her knees, no facial injuries. She reports feeling a little dizzy after the episode. This was an unwitnessed event. She has not had any prior episodes of syncope, and has not had any syncopal spells since then. She does report a several-year long history of tachyarrhythmias - no formal diagnosis. She reports that the arrhythmias became noticeable after the of her second child (uncomplicated , 2012). Her first , in 2004, was complicated by preeclampsia with early delivery at approximately 36 weeks. She states that these arrhythmias are occurring frequently, and when they come on while last 410 minutes or so). She has an apple watch, which has reportedly recorded heart rates in excess of 150, and as high as 164 during these spells. She states that these episodes are happening daily at the moment, and do not show any particular predilection for day or night. She thinks that the frequency has increased over the last couple of weeks. She has no family history of sudden cardiac . Her siblings are healthy. She reports that members of her dad's family are treated for tachycardia . She denies use of any obkx-ong-cfbpxrd drugs. She has recently been started on rizatriptan and topiramate (started approximately 06/29/19). She has heavy caffeine intake, and drinks at least 6 Mountain Dew's daily. She reports 5-6 hours of sleep. DONALD STEPHENS MD [address] [place] [address], [phone], [facility] 07/11/2019 11:09:26 07/27/2019 text/html She was seen abo wv two mos ago with migraines. She has been about the same - migraines as often as every other day or every day. Maxalt did not help, but she tried her mom's Relpax and that did. She tried Topamax for a little while - could not say how long, maybe a month - but did not see benefit so stopped. She also had syncope. This was 3-4 weeks ago. She was walking out to her car, and she felt dizzy and then passed out, fell to the ground, scraped her knees. She was not out long, a few seconds. No one was with her. No tongue bite or incontinence. She did not feel markedly abnormal afterward and got into her car and drove home. No h/o syncope or near syncope. She does have recurrent palpitations. She was seen by cardiology and workup including echo and Holter was negative. She has h/o fainting when seeing blood. That has happened at least twice, not lately. JAZMYN PARKS MD [address] [place] [address], [phone], [facility] 07/27/2019 17:27:53 07/27/2019 text/html Ms Shannen Chambers is a 28-year-old woman being seen for followup re: palpitations and a recent episode of syncope. CARDIAC HISTORY: # Palpitations # Syncope Other Comorbidities: Lupus - on hydroxychloroquine Since her last visit, she reports no further pre-syncopal spells or any transient loss of consciousness. She has made some attempts to reduce her caffeine intake, and increase her fluids, but it does not sound like she has made the degree of changes that had been advised. No exertional symptoms (no dyspnea, palpitations, anginal chest pain). She also denies any symptoms to suggest volume overload/heart failure. At today's visit, we have reviewed her transthoracic echocardiogram (normal) as well as her 48 hour Holter monitor (5 PACs, 1 times PVC). Max heart rate during that study was 148 (cf 164 per patient wearable device during spells ). DONALD STEPHENS MD [address] [place] [address], [phone], [facility] 07/27/2019 12:02:05 05/14/2020 text/html Visit today is b eing conducted via telehealth using both audio and video. Patient has expressed an understanding of the telehealth process and has consented. f/u on positive mariely with worsening symptoms overall; she reports increased fatigue, weakness and hair loss; out of control migraines; rashes recurring on the skin without knowing what caused it; swelling in the hands; she continues with muscle spasms; she has no s/e from her current medications; feeling flared and unable to get her words out; without interval infection; no s/e from medications; currently denies bowel or bladder changes, chest pain, shortness of air, rashes, fevers and all others are negative LUPE MICHAEL, SEAMER PANTY HOSE [address] [place], [address], [facility] 05/14/2020 11:09:29 OBGyn Episode No OBEpisode recorded.
--- OUTSIDE RECORDS SUMMARY | 2025-04-14 11:57 | XMS_ITS | Data Portability ---
Author Organization [employer] - [place] - [place] & [place] ADMIN Address [address] [place] [id number] Assessment Encounter Date Assessment Date Assessment LastModified by Organization Details LastModified Time 10/17/2024 10/17/2024 In summary this is a 33-year-old female who presented to the clinic complaining of sore throat, nasal congestion, headache, body aches, and general malaise that began 2 days ago and has persisted. Patient also complains of erythematous area underneath her right nostril that she has been using Neosporin for but does not seem to be improving. Patient also reports a fever blister on her upper lip that has also been present for the past couple of days. Please see HPI for further details. Rapid strep performed and was positive. Rapid influenza performed and was negative. Rapid COVID-19 test performed and was negative. Results discussed with patient. Prescriptions for azithromycin, valacyclovir, and mupirocin ointment sent to local pharmacy. Patient advised to increase fluid intake, take all antibiotics and complete prescription as prescribed, take Tylenol/ibuprofe n as needed, discard toothbrush in 48 hours, and follow up with their primary care provider if symptoms persist or worsen. [email or web address] Not available 10/17/2024 10:18:27 Plan of Treatment Reminders Order Date Submit Date Provider Last Modified By Organization Details Last Modified Time Details Appointments None record ed. Lab rapid strep group A, throat 2023 024 gadiel humphrey [facility], [address] [facility] [address], [place], [address], Ph [phone] 10:15:43 rapid flu (A+B) 2023 024 gadiel humphrey [facility], [address], [place], [address], Ph [phone] 10:15:44 rapid SARS CoV 2 Ag, QL IA, respir atory specim en 2023 gadiel humphrey [facility], [address], [place], [address], Ph [phone] 10:15:43 Referral None record ed. Procedures None record ed. Surgeries None record ed. Imaging None record ed. Medication Orders valacy clovir 1 gram tablet 2023 [facility], [address] [place] [address], [id number], 4 10:16:25 azithr omycin 500 mg tablet 2023 [facility], [address] [place] [address], [id number], 4 10:16:16 mupiro cecilia 2 % topica l ointme nt 2023 [facility], [address] [place] [address], [id number], 4 10:16:19 Patient TargetsNo targets recorded. Patient InstructionsNo instructions recorded. Reason for Referral None Reported. Results Created Date Observation Date Name Description Value Unit Range Abnormal Flag Note LastModifiedBy Organization Detail LastModifiedTime 10/17/20 24 10/17/2024 rapid flu (A+B) Flu A negati ve Not Available [facility] [address], [place], [address], Ph [phone] 10/17/2024 09:46:48 10/17/20 24 10/17/2024 rapid flu (A+B) Flu B negati ve Not Available [facility] [address], [place], [address], Ph [phone] 10/17/2024 09:46:48 10/17/20 24 10/17/2024 rapid strep group A, throa t Strep positi ve Not Available [facility] [address], [place], [address], Ph [phone] 10/17/2024 09:46:27 10/17/20 24 10/17/2024 rapid SARS CoV 2 Ag, QL IA, respi rator y speci men rapid SARS CoV 2 Ag, QL IA, respiratory specimen negati ve Not Available [facility] [address], [place], [address], Ph [phone] 10/17/2024 09:46:55 Result Notes None recorded. Medical Equipment None Reported. Allergies Allergen ID Allergen Name Allergen Category Reaction Reaction Severity Criticality Documentation Date Start Date Code Code System Note Provider Name and Address Organization Details Recorded Time 666592 Product containin g penicilli n (product) medicatio n Not available Not available Not available 10/17/2024 96673 8001 SNOMED [facility] [place] 4 09:46:18 Medications Name Sig Start Date Stop Date Status Note LastModified by Organization Details LastModified Time doxycycline hyclate 100 mg capsule active Not Available Not Available Not Available trazodone 50 mg tablet active Not Available Not Available No t Available cetirizine 10 mg tablet active Not Available Not Available No t Available azithromycin 250 mg tablet active Not Available Not Availabl e Not Available fosfomycin tromethamine 3 gram oral packet active Not Available Not Available Not Available valacyclovir 1 gram tablet Take 2 tablets every 12 hours by oral route for 1 day. active Not Available Not Available No t Available prednisone 20 mg tablet active Not Available Not Available No t Available benzonatate 100 mg capsule active Not Available Not Availab le Not Available pantoprazole 40 mg tablet,delayed release active Not Available Not Available Not Available estradiol 2 mg tablet active Not Available Not Available Not Available mupirocin 2 % topical ointment APPLY A SMALL AMOUNT TO THE AFFECTED AREA BY TOPICAL ROUTE 3 TIMES PER DAY active Not Available Not Available No t Available methylpredniso lone 4 mg tablets in a dose pack active Not Available Not Available No t Available albuterol sulfate HFA 90 mcg/actuation aerosol inhaler active Not Available Not Available Not Available paroxetine 40 mg tablet active Not Available Not Available No t Available brompheniramin e-pseudoephedr ine-DM 2 mg-30 mg-10 mg/5 mL oral syrup active Not Available Not Available N ot Available ondansetron 4 mg disintegrating tablet active Not Available Not Available Not Available cefdinir 300 mg capsule active Not Available Not Available N ot Available fluticasone propionate 50 mcg/actuation nasal spray,suspensi on active Not Available Not Available Not Available loratadine 10 mg tablet active Not Available Not Available No t Available diazepam 5 mg tablet active Not Available Not Available Not Available azithromycin 500 mg tablet Take 1 tablet every day by oral route for 5 days. active Not Available Not Available No t Available nitrofurantoin monohydrate/ma crocrystals 100 mg capsule active Not Available Not Availab le Not Available Vitals Date Recorded Body weight Body temperature Heart rate Systolic blood pressure Diastolic blood pressure Provider Name and Address Organization Details Last Updated DateTime 10/17/2024 86829.0 4 g 98.1 [degF] 57 /min 124 mm[Hg] 80 mm[Hg] [facility] & [place] 4 09:45:05 Social History None recorded. Functional Status None recorded. Mental Status None recorded. Family History Nothing Reported. Medical History No medical history recorded. Gynecological HistoryNo gynecological history recorded. Obstetrics History GPAL:G 0 P 0 0 0 0 Past Encounters Encounter ID Performer Location Encounter Start Date Encounter Closed Date Diagnosis/Indication Diagnosis SNOMED-CT Code Diagnosis ICD10 Code Diagnosis Note [id number] BRENDAN Sebastian [facility] [address] [facility] [address] [place] [id number] 10/17/2024 09:33:23 10/17/2024 10:14:51 Acute streptococcal pharyngitis 5267074055 J02.0 Impetigo 35605310 L01.00 Herpes labialis 8664114 B00.1 Health Concerns Section Related Observation LastModified by Organization Detai ls LastModified Time None Recorded Concern Status LastModified by Organization Details LastModified Time None Recorded Advance Directives Directive None Recorded Payers Insurance Date Sequence Insurance Name Policy Number Policy Grover Covered Member ID Grover Member ID Guarantor Name 10/17/2024 1 [facility] [place] [place] - HMO) Shannen Chambers [id number] Shannen Chambers 10/17/2024 1 [facility] Shannen Chambers [id number] Shannen Chambers Notes Date Note Type Note Provider Name and Address Organization Details Recorded Time 10/17/2024 text/html 33-year-old female presents to the clinic complaining of sore throat, nasal congestion, headache, body aches, and general malaise that began 2 days ago and has persisted. Patient also complains of erythematous area underneath her right nostril that she has been using Neosporin for but does not seem to be improving. Patient also reports a fever blister on her upper lip that has also been present for the past couple of days. Patient denies vomiting, diarrhea, or any other symptoms. Hilda Bee PA-C [address] [facility], [place], [address], [facility] [place] & [place] 10/17/2024 10:19:24 OBGyn Episode No OBEpisode recorded.
--- NOTE | 2025-04-14 12:05 | CT_ITS ---
FINAL REPORT TECHNIQUE: Thin section axial images are obtained through the abdomen and pelvis after intravenous contrast. Reconstruction images were obtained from the axial data. Exam was performed using dose reduction techniques. CLINICAL HISTORY: pyelo versus obstructive stone COMPARISON: None FINDINGS: LUNG BASES: Lung bases are clear. Heart size is normal. LIVER: Small hypodense lesion in the left lobe of the liver is likely a cyst. Hypodense lesion in the posterior right lobe of the liver is indeterminate and could be a cyst or small hemangioma. The remainder of the liver is homogeneous. GALLBLADDER/BILIARY SYSTEM: Gallbladder is present. Gallstones present. No biliary dilatation. SPLEEN: Subcentimeter splenic cyst noted. PANCREAS: Unremarkable. ADRENALS: Unremarkable. KIDNEYS/URETERS/BLADDER: No renal mass or hydronephrosis. No obstructing renal or ureteral stones. No findings to suggest pyelonephritis. Unremarkable urinary bladder. GI TRACT: No evidence of obstruction. Appendix not identified but no secondary signs of appendicitis. Moderate to large amount of retained stool in the colon. PELVIC ORGANS: Uterus is absent. LYMPH NODES/RETROPERITONEUM/MESENTERY: No lymphadenopathy. No abdominal aortic aneurysm. ABDOMINAL WALL: The abdominal wall is intact. FREE FLUID: No ascites. BONES: No acute osseous abnormality. IMPRESSION: No acute abnormality in the abdomen or pelvis. No CT evidence of pyelonephritis. Constipation. Indeterminate right liver lesion. In the absence of known malignancy, this is likely benign. Reviewed, Interpreted and Dictated by Stephanie Barrios MD Transcribed by Kadie Nguyen Authenticated and [facility]
[2025-04-14] MEDS: LACTATED RINGERS 1000ML 1,000 ML 999 ML IV (12:09)
[2025-04-14] MEDS: ONDANSETRON 4MG/2ML VIAL 4 MG IV (12:09)
[2025-04-14] MEDS: MORPHINE 4MG/ML SYRINGE 4 MG IV (12:10)
[2025-04-14 12:18] LABS: Microscopic, Urine URINE MICROSCOPIC (MICROSCOPIC)
[2025-04-14 12:22] LABS: Basophils % 0.6 % (0.1-2.0); Eosinophils # 0.1 Kmm3 (0.0-0.4); Eosinophils % 2.2 % (0.1-12.0); Hematocrit 39.1 % (37.0-47.0); Hemoglobin 12.9 g/dL (12.2-16.2); Immature Granulocytes # 0.01 10^3uL; Immature Granulocytes % 0.2 %; Lymphocytes # 1.4 K/mm3 (0.7-4.5); Lymphocytes % 20.9 % (10-50); Mean Corpuscular Hemoglobin 31.2 pg (27.0-31.2); Mean Corpuscular Volume 94.7 fl (81-99); Mean Platelet Volume 12.1 fl (7.4-10.4); Monocytes # 0.4 K/mm3 (0.1-1.0); Monocytes % 6.4 % (1.7-9.3); Neutrophils # 4.5 K/mm3 (1.8-7.8); Neutrophils % 69.7 % (37.0-80.0); Nucleated Red Blood Cells # 0 10^3/uL; Nucleated Red Blood Cells % 0 %; Platelet Count 225 K/mm3 (142-424); Red Blood Count 4.13 M/mm3 (4.20-5.40); Red Cell Distribution Width 12.7 % (11.5-17.5); Red Cell Distribution Width-SD 44.2 fL; White Blood Count 6.5 K/mm3 (4.8-10.8)
[2025-04-14 12:26] LABS: Appearance,Urine CLEAR (Clear); Bilirubin,Urine Negative (Negative); Blood, Urine Negative (Negative); Color,Urine YELLOW (Yellow); Glucose,Urine (UA) Negative (Negative); Ketones,Urine Negative (Negative); Leukocyte Esterase,Urine Negative (Negative); Nitrate,Urine Negative (Negative); PH,Urine 6.5 (5.0-8.5); Protein,Urine Negative (Negative); Specific Gravity, Urine 1.025 (1.005-1.030); Urobilinogen,Urine 0.2 EU/dl (0.2)
[2025-04-14 12:27] LABS: Alanine Aminotransferase 10 U/L (12-78); Albumin Level 4.1 g/dl (3.5-5.0); Albumin/Globulin Ratio 1.2 (1.1-1.8); Alkaline Phosphatase 54 U/L (38-126); Anion Gap 11.8 mEq/L (5-15); Aspartate Amino Transferase 20 U/L (14-36); Bilirubin,Total 0.7 mg/dl (0.2-1.3); Blood Urea Nitrogen 8 mg/dl (7-17); Calcium 9.2 mg/dl (8.4-10.2); Carbon Dioxide 28 mmol/L (22.0-30.0); Chloride 101 mmol/L (98-107); Creatinine Clearance Estimated 102 mL/min (50-200); Estimated Glomerular Filt Rate 81 ml/min (>60); GFR (African American) 98 ML/MIN (>60); Globulin 3.4 g/dL (1.3-3.2); Glucose 106 mg/dl (74-100); Potassium 3.8 mmoL/L (3.5-5.1); Sodium 137 mmol/L (136-145); Total Protein,Serum 7.5 g/dl (6.3-8.2)
[2025-04-14] MEDS: IOPAMIDOL-370 (76%);100ML BOTTLE 75 ML IV (12:28)
[2025-04-14] MEDS: SODIUM CHLORIDE 0.9% 10ML SYR (RAD ONLY) 10 ML IV (12:28)
[2025-04-14 13:13] LABS: HIV Combo NEGATIVE (Negative)
[2025-04-14 13:21] LABS: Hepatitis C Ab Qual. W/ RFX NEGATIVE (Negative)
--- NOTE | 2025-04-14 14:38 | HMH.EDGENADL ---
Discharge Plan Disposition Patient Disposition: Home, Self-Care Condition: Good Prescriptions Prescriptions: No Action ondansetron 4 mg tablet,disintegrating 4 mg PO Q8H PRN (Reason: nausea and vomiting) Qty: 10 0RF sulfamethoxazole-trimethoprim 800-160 mg tablet 1 tab PO BID Qty: 20 0RF trazodone 50 mg tablet 50 mg PO DAILY pantoprazole 40 mg tablet,delayed release (DR/EC) 40 mg PO DAILY estradiol 2 mg tablet 2 mg PO DAILY paroxetine HCl 40 mg tablet 40 mg PO DAILY loratadine 10 mg tablet 10 mg PO DAILY diazepam 5 mg tablet 5 mg PO DAILY Referrals Follow up/Referrals: Regan Garcia MD [Staff Physician, Urology] - See instructions Referral Note: Call to verify insurance acceptance and schedule an appointment. Daryn Augustin MD [Primary Care Provider, Internal Medicine] - See instructions Activity Restrictions/Add. Instructions Additional Instructions/Restrictions: Finish your antibiotics medication even if you feel better. Drink enough water and fluids to keep your urine clear or pale yellow. Avoid caffeine, tea, and carbonated beverages - these can irritate your bladder. Empty your bladder often. Avoid holding urine for long periods of time. Empty your bladder before and after sexual intercourse. After a bowel movement, women should cleanse from front to back. Use each tissue only once. SEEK MEDICAL CARE IF: You develop a fever. Your symptoms do not begin to resolve within 3 days. SEEK IMMEDIATE MEDICAL CARE IF: You have severe back pain or lower abdominal pain. You develop chills. You have nausea or vomiting. You have continued burning or discomfort with urination. Please call the urology office to verify that they take your insurance. He may need further investigation into the cause of your recurrent UTI. Clinical Impressions Clinical Impression: Dysuria, Right flank pain Instructions Patient Instructions: DI for Urinary Tract Infection (UTI) Print Language Print Language: Micronesian Discharge ED Provider: Sherley Paz Adult HPI General Chief complaint: Urogenital-Female Stated complaint: abd pain, uti, poss kidney stone Time Seen by Provider: 04/14/25 11:56 Mode of Arrival: Ambulatory Source of Information: Patient Description of Symptoms (Recalled from ER Triage Doc. by RN): Patient presents to ED after being sent from 's office with a possible kidney stone. Patient states she is having right sided back to flank pain. 06/04. Patient reports starting Macrobid on 03/21, changed antibiotic to Cipro on 04/05. Patient continues to report painful urination. History of Present Illness HPI narrative: Shannen Chambers is a 34 y/o female presenting with dysuria and flank pain. Patient reports history of total hysterectomy and takes hormone replacement therapy. Patient has had frequent UTIs and was started on antibiotics March 21. She states she had initial improvement and then recurrence of dysuria and was subsequently placed on ciprofloxacin April 05. Patient was seen by her primary care provider who was concerned for a kidney stone due to patient's complaint of right-sided flank pain. She states she has not had any fevers, constipation, diarrhea, vomiting. Related Data Home Medications ?Medication ?Instructions ?Recorded ?Confirmed diazepam 5 mg tablet 5 mg PO DAILY 06/06/24 04/12/25 estradiol 2 mg tablet 2 mg PO DAILY 06/06/24 04/12/25 loratadine 10 mg tablet 10 mg PO DAILY 06/06/24 04/12/25 pantoprazole 40 mg tablet,delayed 40 mg PO DAILY 06/06/24 04/12/25 release paroxetine HCl 40 mg tablet 40 mg PO DAILY 06/06/24 04/12/25 trazodone 50 mg tablet 50 mg PO DAILY 06/06/24 04/12/25 Previous Rx's ?Medication ?Instructions ?Recorded ondansetron 4 mg disintegrating 4 mg PO Q8H PRN nausea and 01/12/25 tablet vomiting #10 tabs sulfamethoxazole 800 1 tab PO BID #20 tabs 04/12/25 mg-trimethoprim 160 mg tablet Allergies Allergy/AdvReac Type Severity Reaction Status Date / Time Penicillins (PENICILLINS) Allergy Unknown Verified 04/12/25 13:27 [facility] Disclaimer: The information contained in this section may have been updated after the patient was seen, as this information can be updated by other users. Medical History (Updated 04/14/25 @ 14:38 by Sherley Paz MD) Depression Anxiety Lupus Surgical History History of appendectomy History of hysterectomy History of [facility] Social History Smoking Status: Never smoker alcohol intake: never current occupational status: employed Travel in the last 8 weeks?: None Have you lived/traveled outside [place] in past 30 days?: No Contact w/someone who lives/traveled outside [place] past 30 days?: No Exposure to someone with infectious disease in past 14 days?: No Do you have a fever (greater than 100.4 F or 38 C)?: No Have you tested positive for COVID-19?: No Exposed to someone with COVID-19 in past 14 days?: No Do you have a sore throat?: No Do you have a cough?: No Do you have any weakness?: No Do you have any diarrhea?: No Are you experiencing any unusual bleeding?: No Do you have any muscle aches/pain?: No Do you have any abdominal pain?: Yes Are you experiencing loss of taste or smell?: No Other Medical History Have you received the Pneumonia Vaccine: No ROS Obtained: Yes All systems reviewed & no additional complaints except as documented Physical Exam General General appearance: alert and in no apparent distress Respiratory Respiratory exam: Present normal lung sounds bilaterally; Absent respiratory distress Cardiovascular Cardiovascular exam: Present regular rate and normal rhythm; Absent JVD Abdominal Exam Abdominal exam: Present soft and tenderness; Absent distention or guarding Abdominal tenderness: Present suprapubic Extremities Exam Extremities exam: Present normal inspection, full ROM and normal capillary refill Back Exam Back exam: Present normal inspection and CVA tenderness (R); Absent tenderness or CVA tenderness (L) Neurological Exam Neurological exam: Present alert and oriented X3 Psychiatric Psychiatric exam: Present normal affect and normal mood Skin Skin exam: Present warm, dry, intact and normal color Medical Decision Making Medical Records Medical records reviewed: Yes I reviewed the patient's medical records. Screening: Per USPSTF and CDC recommendations, given the prevalence of disease in our region, it is our hospital?s policy to screen for HIV and viral Hepatitis for all patients aged 18 and over and those with ongoing risk factors. Elan Inquiry Pt receiving controlled substance: No Vital Signs: 04/14/25 11:53 04/14/25 12:00 04/14/25 12:13 Temperature 97.7 F Temperature Source Oral Pulse Rate 62 55 L Pulse Rate [Right Brachial] 52 L Respiratory Rate 20 Blood Pressure 114/79 113/73 Blood Pressure [Right Arm] 124/78 Blood Pressure Mean [Right Arm] 93 Blood Pressure Source [Right Arm] Automatic Cuff Blood Pressure Position [Right Arm] Sitting 02 Sat by Pulse Oximetry 100 100 100 Oxygen Delivery Method Room Air 04/14/25 13:00 04/14/25 13:30 04/14/25 14:00 Temperature Temperature Source Pulse Rate 52 L 46 L 46 L Pulse Rate [Right Brachial] Respiratory Rate Blood Pressure 99/62 L 99/66 L 100/67 L Blood Pressure [Right Arm] Blood Pressure Mean [Right Arm] Blood Pressure Source [Right Arm] Blood Pressure Position [Right Arm] 02 Sat by Pulse Oximetry 99 97 99 Oxygen Delivery Method Lab Data Lab results reviewed: Yes I reviewed the patient's lab results. Lab Results 04/14/25 11:46: Urine Color Yellow, Urine Appearance Clear, Urine pH 6.5, Ur Specific [place] 1.025, Urine Protein Negative, Urine Glucose (UA) Negative, Urine Ketones Negative, Urine Blood Negative, Urine Nitrate Negative, Urine Bilirubin Negative, Urine Urobilinogen 0.2, Ur Leukocyte Esterase Negative 04/14/25 11:57: WBC 6.5, RBC 4.13 L, Hgb 12.9, Hct 39.1, MCV 94.7, MCH 31.2, MCHC 33.0, RDW 12.7, Plt Count 225, MPV 12.1 H, Neut % (Auto) 69.7, Lymph % (Auto) 20.9, [place] % (Auto) 6.4, Eos % (Auto) 2.2, Baso % (Auto) 0.6, Neut # (Auto) 4.5, Lymph # (Auto) 1.4, [place] # (Auto) 0.4, Eos # (Auto) 0.1, Baso # (Auto) 0.0, Sodium 137, Potassium 3.8, Chloride 101, Carbon Dioxide 28, Anion Gap 11.8, BUN 8, Creatinine 0.80, Estimated Creat Clear 102, Estimated GFR 81, Est GFR ( Amer) 98, Glucose 106 H, Calcium 9.2, Total Bilirubin 0.7, AST 20, ALT 10 L, Alkaline Phosphatase 54, Total Protein 7.5, Albumin 4.1, Globulin 3.4 H, Albumin/Globulin Ratio 1.2, HCV Ab VILLA w/Rflx PCR Qn Negative, HIV Ag/Ab Combo Qual Negative 04/14/25 11:57 04/14/25 11:57 Orders (Tests/Meds): ED MEDICATIONS Discontinued Medications Generic Name Dose Route Start Last Admin Trade Name Rudyq PRN Reason Stop Dose Admin Lactated Ringer's 1,000 mls @ 999 mls/hr 04/14/25 12:05 04/14/25 12:09 Lactated Ringer's 1000 Ml Bag IV 04/14/25 13:05 999 mls/hr .Q1H1M ONE Administration Iopamidol 75 ml 04/14/25 12:27 04/14/25 12:28 Iopamidol-370 (76%);100ml Bottle IV 04/14/25 12:28 75 ml ONCE ONE Administration Morphine Sulfate 4 mg 04/14/25 12:05 04/14/25 12:10 Morphine 4mg/Ml Syringe IV 04/14/25 12:06 4 mg ONCE ONE Administration Ondansetron HCl 4 mg 04/14/25 12:04/14/25 12:09 Ondansetron 4mg/2ml Vial IV 04/14/25 12:06 4 mg ONCE ONE Administration Sodium Chloride 10 ml 04/14/25 12:27 04/14/25 12:28 Sodium Chloride 0.9% 10ml Syr (Rad Only) IV 04/14/25 12:28 10 ml ONCE ONE Administration ORDERS Category Date Time Status CT abdomen pelvis w con Stat Cat Scan 04/14/25 12:05 Completed CBC w/Auto Diff [Complete Blood Count Auto Diff] Stat Lab 04/14/25 11:57 Completed CMP [Comprehensive Metabolic Panel] Stat Lab 04/14/25 11:57 Completed HIV Combo Stat Lab 04/14/25 11:57 Completed Hepatitis C Ab Qual. W/ RFX Stat Lab 04/14/25 11:57 Completed Urinalysis and Microscopic Stat Lab 04/14/25 11:46 Results Urine Culture Stat Micro 04/14/25 11:46 Received Medical Decision Narrative: In summary, this is a 34-year-old female presenting with dysuria and flank pain. Patient has history of total hysterectomy and appendectomy. Differential diagnosis includes but is not limited to, recurrent UTI, ureterolithiasis, nephrolithiasis, hydronephrosis, pyelonephritis, bowel obstruction, constipation, among others. On initial evaluation, afebrile, patient hemodynamically stable and in no acute distress. Patient currently on course of ciprofloxacin. Patient has had no systemic symptoms but does have new right-sided flank pain. Patient has a photo of 3 clumps of, what appears to be sediment, from her urine. Patient has no known history of kidney stones. Patient initially evaluated with CBC, CMP, urinalysis, CT AP with contrast. Patient treated with IV fluids, morphine, Zofran. Patient's laboratory evaluation demonstrated no leukocytosis, anemia, thrombocytopenia. Metabolic panel was nonactionable. Patient's urinalysis today was negative for blood, nitrates, leukocyte esterase. Patient CT abdomen/pelvis was reviewed by me and demonstrated moderate stool burden without findings of pyelonephritis, hydronephrosis or other pathology suggestive of patient's symptoms. Patient was updated on the findings of her labs and imaging. At this time it is felt that the patient can safely be discharged home. Patient was advised to continue any medications she currently has as they were prescribed originally. Patient recommended to follow-up with urology. She states she had tried a different urologist who did not take her insurance and has not been able to follow-up yet. She was provided the phone number to [facility] associated urology physicians office and advised to contact them for follow-up. Patient is agreement with this plan. Return precautions given and all questions were answered. Patient discharged in stable condition. Sherley Paz MD Critical Care Critical Care Time Critical Care Time: No
[2025-04-14 15:37] LABS: Bacteria,Urine Trace /lpf
== END 2025-04-14 14:43 | disposition home or self-care (01) ==
PROVIDERS: Emergency Provider Student in an Organized Health Care Education/Training Program; PCP Family Medicine
DX: R10.31 Right lower quadrant pain (principal); R30.0 Dysuria
CPT/HCPCS: 74177; 80053; 81001; 85025; 86803; 87086; 87389; 96361; 96374; 96375; 99285; J2270; J2405; J7120; Q9967

== ENCOUNTER 2025-04-24 15:01 | Outpatient (CLI) | payer MEDICAID, SELFPAY ==
--- OUTSIDE RECORDS SUMMARY | 2025-04-24 15:03 | XMS_ITS | Continuity of Care Document ---
Author Organization [place] - [facility] - [place] & [place], [facility] [place] Address [address] [place] [address] Care Team Providers Care Python Consultant Name Role Phone JAZMYN FERREIRA Primary Care Provider [phone] Assessment Encounter Date Assessment Date Assessment LastModified by Organization Details LastModified Time 04/20/2025 04/20/2025 Patient presents with feeling ill since completing treatment for a UTI. She c/o chest pain with sternal TTP. Will obtain labs, CXR. EKG shows LAE and bradycardia, will obtain echo. For urine, UA is WNL, will obtain culture and AIT swab. Patient is agreeable. [email or web address] Not available 04/20/2025 13:31:03 Plan of Treatment Reminders Order Date Submit Date Provider Last Modified By Organization Details Last Modified Time Details Appointments OV EST 20 2024 01:30P Demetria Ferreira MD Not available Not available Not available Lab CBC w/ auto diff 2024 025 [facility] (Registration ), [address] , [place], [address], 04/21/2025 02:30:09 CMP, serum or plasma 2024 025 [facility] (Registration ), [address], [place], [address], 04/21/2025 02:31:30 magnesium , serum or plasma 2024 025 [facility] (Registration ), [address], [place], [address], 04/20/2025 12:34:50 TSH + free T4, serum 2024 025 [facility] (Registration ), [address], [place], [address], 04/20/2025 12:34:50 urinalysi s, dipstick [address] [facility], [address] [facility], [address], [place], [address], 04/20/2025 12:11:02 culture, urine 2024 025 [facility], [address], [address], [place], [address], 04/20/2025 12:11:13 Referral None recorded. Procedures None recorded. Surgeries None recorded. Imaging electroca rdiogram 2024 025 [place] [address] [facility] [place], [address] [facility], [address], [place], [address], 04/20/2025 13:46:51 XR, chest, 2 view 2024 025 [facility] (Registration ), [address], [place], [address], 04/20/2025 12:24:56 US, echocardi ogram, transthor acic, complete, w/ color flow [address] (Centralized Scheduling), [address], [place], [address], 04/22/2025 13:47:56 holter monitor 2024 025 [id number] [facility] (Centralized Scheduling), [address], [place], [address], 04/22/2025 13:47:55 Medication Orders None recorded. Patient TargetsNo targets recorded. Patient InstructionsNo instructions recorded. Reason for Referral None Reported. Results Created Date Observation Date Name Description Value Unit Range Abnormal Flag Note LastModifiedBy Organization Detail LastModifiedTime 04/20/2004/20/2025 urina lysis , dipst ick Leukocytes (reference range) negati ve Not Available [facility] [address], [place], [address], 04/20/2025 12:02:50 04/20/20 25 04/20/2025 urina lysis , dipst ick Nitrite (reference range:) negati ve Not Available [facility] [address], [place], [address], 04/20/2025 12:02:50 04/20/20 25 04/20/2025 urina lysis , dipst ick Urobilinogen (reference range) 0.2 Not Available [facility] [address], [place], [address], 04/20/2025 12:02:50 04/20/20 25 04/20/2025 urina lysis , dipst ick Protein (reference range) negati ve Not Available [facility] [address], [place], [address], 04/20/2025 12:02:50 04/20/20 25 04/20/2025 urina lysis , dipst ick pH (reference range 5-8.5) 6.5 Not Available [facility] [address], [place], [address], 04/20/2025 12:02:50 04/20/20 25 04/20/2025 urina lysis , dipst ick Blood (reference range:) negati ve Not Available [facility] [place] [address], [place], [address], 04/20/2025 12:02:50 04/20/20 25 04/20/2025 urina lysis , dipst ick Specific [place] (reference range) 1.020 Not Available [facility] [place] [address], [place], [address], 04/20/2025 12:02:50 04/20/20 25 04/20/2025 urina lysis , dipst ick Ketone (reference range) negati ve Not Available [facility] [place] [address] [facility], [place], [address], 04/20/2025 12:02:50 04/20/20 25 04/20/2025 urina lysis , dipst ick Bilirubin (reference range) negati ve Not Available [facility] [place] [address] [facility], [place], [address], 04/20/2025 12:02:50 04/20/20 25 04/20/2025 urina lysis , dipst ick Glucose (reference range) negati ve Not Available [facility] [place] [address] [facility], [place], [address], 04/20/2025 12:02:50 04/20/20 25 04/20/2025 urina lysis , dipst ick Color (reference range: yellow-brown ) Dark Yellow Not Available [facility] [place] [address] [facility], [place], [address], 04/20/2025 12:02:50 04/20/20 25 04/20/2025 elect giovani mehta am No observ ation record ed. [facility] [address], [place], [address], 04/20/2025 17:08:14 Result Notes None recorded. Problems Name Problem SNOMED Code Status Onset Date Resolution Date Notes Provider Name and Address Organization Details Recorded Time Allergic rhinitis 53086838 Active Barbara Fleharty null, [place] - [facility] & [place] 2 09:21:02 Lupus erythematosus 667742601 Active Barbara Fleharty null, [place] [facility] & [place] 2 09:21:02 Indigestion 841651978 Active Barbara Fleharty null, [place] [facility] & [place] 2 09:21:02 Migraine 13628667 Active Barbara Fleharty null, [place] [facility] & [place] 2 09:21:02 Gastroesophag eal reflux disease 527198721 Active Barbara Fleharty null, [place] [facility] & [place] 2 09:21:02 Dysthymia 71249175 Active Barbara Fleharty null, [place] [facility] & [place] 2 09:21:02 Overweight 456154690 Active 2023 Jazmyn Ferreira MD [address], [place], [address] , [place] - [facility] & [place] 4 10:58:54 Insomnia 948621648 Active [address], [place], [address] , [place] - [facility] & [place] 4 16:28:31 Problem Notes None recorded. Procedures Surgical History Date Name Laterality Status Provider Name and Address Organization Details Recorded Time 10/26/19 18 tonsilectomy/patricia noids completed Consuelo Christina [place] - [facility] & [place] 07/03/2023 12:35:36 10/26/19 13 Total hysterectomy completed Melvina CHRIS - [facility] & [place] 10/05/2023 17:38:56 10/26/19 13 excision of cyst completed Consuelo Foote [facility] & [place] 07/03/2023 12:28:43 10/26/19 13 Appendectomy completed Marilu Foote [facility] & [place] 06/10/2024 11:48:42 10/26/19 13 Media Account Executive Surgery completed Marilu Foote [facility] & [place] 06/10/2024 11:48:42 lumpectomy of breast completed Consuelo CHRIS [facility] & [place] 07/03/2023 12:35:08 child examination - completed Melvina CHRIS [facility] & [place] 10/05/2023 17:44:14 Imaging Results None recorded. Procedure Notes None recorded. Medical Equipment None Reported. Allergies Allergen ID Allergen Name Allergen Category Reaction Reaction Severity Criticality Documentation Date Start Date Code Code System Note Provider Name and Address Organization Details Recorded Time 10145 penicilli n G Not available rash moderate Not available 07/30/2022 7980 RxNorm Jazmyn Ferreira MD [address] [facility], [place], [address] [place] [address] & [place] 2 09:31:46 14227 influenza virus vaccine, live attenuate d Not available rash Not available Not available 07/03/[address] [facility], [place] - [facility] & [place] 3 12:36:31 Medications Name Sig Start Date Stop Date Status Note LastModified by Organization Details LastModified Time promethazin e-DM 6.25 mg-15 mg/5 mL oral syrup Take 5 mL every 6 hours by oral route as needed for 10 days. 08/26 completed Not Available Not Available Not Available doxycycline hyclate 100 mg capsule 08/17 completed Not Available Not Available Not Available trazodone 50 mg tablet TAKE ONE TABLET BY MOUTH AT BEDTIME 2024 active Not Available Not Available Not Avai lable cetirizine 10 mg tablet TAKE ONE TABLET BY MOUTH ONCE A DAY NEEDED active Not Available Not Available No t Available azithromyci n 250 mg tablet TAKE 2 TABLETS (500 MG) BY ORAL ROUTE ONCE DAILY FOR 1 DAY THEN 1 TABLET (250 MG) BY ORAL ROUTE ONCE DAILY FOR 4 DAYS 11/29 completed Not Available Not Available Not Available fosfomycin tromethamin e 3 gram oral packet 03/09 completed Not Available Not Available Not Available ofloxacin 0.3 % eye drops INSTILL 1 DROP INTO AFFECTED EYE(S) BY OPHTHALMI C ROUTE 4 TIMES PER DAY X 7 DAYS 11/05 completed Not Available Not Available Not Available valacyclovi r 1 gram tablet active Not Available Not Available Not Available prednisone 20 mg tablet Take 2 tablets every day by oral route for 5 days. 06/08 completed Not Available Not Available Not Available sulfamethox azole 800 mg-trimetho prim 160 mg tablet TAKE 1 TABLET BY MOUTH 2 TIMES A DAY active Not Available Not Available No t Available benzonatate 100 mg capsule 08/17 completed Not Available Not Available Not Available paroxetine 30 mg tablet Take 1 tablet every day by oral route for 30 days. 08/26 completed Not Available Not Available Not Available paroxetine 20 mg tablet 09/17 completed Not Available Not Available Not Available pantoprazol e 40 mg tablet,latesha yed release TAKE 1 TABLET BY MOUTH ONCE A DAY active Not Available Not Available No t Available polymyxin B sulfate 10,000 unit-trimet hoprim 1 mg/mL eye drops 11/05 completed Not Available Not Available Not Available estradiol 2 mg tablet TAKE 1 TABLET BY MOUTH ONCE A DAY active Not Available Not Available No t Available mupirocin 2 % topical ointment active Not Available Not Available Not Available methylpredn isolone 4 mg tablets in a dose pack Take 1 dose pk every day by oral route for 6 days. 08/17 completed Not Available Not Available Not Available albuterol sulfate HFA 90 mcg/actuati on aerosol inhaler Inhale 2 puffs every 6 hours by inhalatio n route as needed. active Not Available Not Available No t Available paroxetine 40 mg tablet TAKE ONE TABLET BY MOUTH ONCE A DAY active Not Available Not Available No t Available bromphenira mine-pseudo ephedrine-D M 2 mg-30 mg-10 mg/5 mL oral syrup Take 10 mL every 6 hours by oral route as needed. 06/10 completed Not Available Not Available Not Available ondansetron 4 mg disintegrat ing tablet DISSOLVE 1 TABLET IN MOUTH EVERY 8 HOURS NEEDED FOR NAUSEA AND VOMITING active Not Available Not Available No t Available cefdinir 300 mg capsule Take 1 capsule twice a day by oral route for 10 days. active Not Available Not Available No t Available fluticasone propionate 50 mcg/actuati on nasal spray,suspe nsion [place] 1 spray every day by intranasa l route. active Not Available Not Available No t Available loratadine 10 mg tablet TAKE ONE TABLET BY MOUTH ONCE A DAY 2024 active Not Available Not Available Not Avai lable diazepam 5 mg tablet TAKE 1 TABLET BY MOUTH EVERY 8 HOURS NEEDED active Not Available Not Available No t Available azithromyci n 500 mg tablet 11/29 completed Not Available Not Available Not Available nitrofurant oin monohydrate /macrocryst als 100 mg capsule TAKE 1 CAPSULE BY MOUTH EVERY TWELVE HOURS with food FOR 10 DAYS active Not Available Not Available No t Available Stahist AD 25 mg-60 mg tablet Take 1 tablet every 8 hours by oral route as needed for 10 days. 02/14 completed Not Available Not Available Not Available Paxlovid 300 mg (150 mg x 2)-100 mg tablets in a dose pack TAKE DIRECTED ON PACKAGE 01/07 completed Not Available Not Available Not Available Vitals Date Recorded Oxygen saturation Oxygen saturation in Arterial blood by Pulse oximetry Provider Name and Address Organization Details Last Updated DateTime 04/20/2025 97 % 97 % Maya Orlando PA-C [address] [facility], [place], [address], [place] - [place] - [place] & [place] 04/20/2025 12:13:59 Date Recorded Body height Body mass index (BMI) Body weight Body temperature Heart rate Oxygen saturation Oxygen saturation in Arterial blood by Pulse oximetry Systolic blood pressure Diastolic blood pressure Provider Name and Address Organization Details Last Updated DateTime 170.18 cm 22.5 kg/m2 14194.8 1 g 96.7 [degF] 65 /min 93 % 93 % 112 mm[Hg] 75 mm[Hg] Kayleigh Baxter [place] - [facility] & [place] 11:41:16 Social History Question Answer Notes LastModified by Organizat ion Details LastModified Time Tobacco Smoking Status Never Smoker Marilu [place], [place] Foot[place] [facility] & [place] 09/17/2022 11:21:52 Are You Blind Or Do You Have Difficulty Seeing? No [email or web address] Information not available 09/17/2022 In The 14 Days Before Symptom Onset, Have You Had Close Contact With A Laboratory-confir med COVID-19 While That Case Was Ill? No Information not available 10/29/2022 In The 14 Days Before Symptom Onset, Have You Had Close Contact With A Person Who Is Under Investigation For COVID-19 While That Person Was Ill? No Information not available 10/29/2022 Have You Been To An Area Known To Be High Risk For COVID-19? No Information not available 10/29/2022 Have You Processed Blood Or Body Fluids From An Ebola Virus Disease Patient Without Appropriate PPE? No Information no t available 10/29/2022 Do You Reside In Or Have You Traveled To An Area Where Ebola Virus Transmission Is Active? No Information not available 10/29/2022 Have You Recently Or Are You Planning To Travel To An Area With Zika Virus? No Information no t available 10/29/2022 What Was The Date Of Your Most Recent Tobacco Screening? 06/08/2024 [email or web address] Information not available 06/10/2024 Are You Passively Exposed To Smoke? No [email or web address] Information no t available 09/17/2022 Has Tobacco Cessation Counseling Been Provided? No Information not available 10/29/2022 Sex: Female Functional Status Question Answer Note LastModified by Organizat ion Details LastModified Time Do you use any illicit or recreational drugs? No [email or web address] Information not available 09/17/2022 Do you or have you ever used any other forms of tobacco or nicotine? No Information not available 10/29/2022 What is your level of alcohol consumption? None [email or web address] Information not available 09/17/2022 What is your exercise level? Occasional [email or web address] Information not available 09/17/2022 Mental Status Question Answer Note LastModified by Organization D etails LastModified Time Do you feel stressed (tense, restless, nervous, or anxious, or unable to sleep at night)? [id number] Information not available 09/17/2022 Family History Relationship Description Onset Age of this Age Resolved Age Notes LastModified by Organization Details LastModified Time Son Allergy pt. added direct ly (07/30) [email or web address] Not available 07/30/2022 08:14:38 Son Allergic rhinitis [email or web address] Not available 2024 10:46:12 Daughter Allergy pt. added direct ly (07/30) [email or web address] Not available 07/30/2022 08:14:38 Mother Chronic obstructive pulmonary disease [email or web address] Not available 2022 12:37:01 Maternal Grandfather Heart disease [email or web address] Not available 2022 12:38:30 Maternal Grandfather Kidney disease [email or web address] Not available 2022 12:38:44 Maternal Grandfather History of malignant neoplasm [email or web address] Not available 2024 10:46:12 Maternal Grandfather Congestive heart failure [email or web address] Not available 2024 10:46:12 Paternal Grandfather Heart disease [email or web address] Not available 2022 17:37:01 Father Irregular heart beat [email or web address] Not available 04/20 10:46:12 Unspecified Relation Rheumatoid arthritis [email or web address] Not available 2022 17:40:51 Unspecified Relation Hypertensive disorder [email or web address] Not available 2022 17:41:03 Unspecified Relation Renal failure syndrome [email or web address] Not available 2024 10:46:12 Medical History Condition Response Allergies/Hayfever N Heart Problems N Heart Conditions N Emphysema N Migraines Y Thyroid Problems N Kidney or Bladder Problems Y Developmental Delay N Depression Y Glaucoma N Anemia N Immune System Disorder N Anesthesia Complications N Heart Attack (MN) N Neurological Problems Y Anxiety Disorder Y Diabetes N Autoimmune disease Y Bleeding Disorder N Arthritis N Hearing Loss N Tuberculosis N Acid Reflux (GERD) N Hyperlipidemia N Cancer N Stroke N Asthma N Lupus Y Reflux/GERD Y Sleep Disorder N GERD/Reflux N Heart Disease N Headaches Y Fibromyalgia Y Hypertension N Speech Delay N Gynecological History Statement/Question Response Current Control Method Hysterectom y Obstetrics History GPAL:G 0 P 0 0 0 0 Immunizations Vaccine Type Date Status Note Provider Nam e and Address Organization Details Recorded Time Hep B, adolescent or pediatric 1 completed Marilu Glen null, [place] - [facility] - [place] & [place] 09/17/2022 13:28:47 Hep B, adolescent or pediatric 2 completed Marilu Glen null, [place] - [facility] [place] & [place] 09/17/2022 13:28:47 Influenza, split virus, quadrivalent, preservative 7 completed Marilu Glen null, [place] - [facility] [place] & [place] 09/17/2022 13:28:47 MMR 9 completed Marilu Glen null, [place] - [facility] [place] & [place] 09/17/2022 13:28:47 Td (adult), 2 Lf tetanus toxoid, preservative free, adsorbed 6 completed Marilu Glen null, [place] - [facility] & [place] 09/17/2022 13:28:47 Hep B, adolescent or pediatric 1 completed Marilu Glen null, [place] - [facility] [place] & [place] 09/17/2022 13:28:47 influenza, unspecified formulation 8 completed Consuelo Christina null, [place] - [facility] & [place] 07/03/2023 12:40:20 COVID-19, mRNA, LNP-S, PF, 30 mcg/0.3 mL dose, dinora-sucrose 3 completed Alesia Galicia null, [place] - [facility] & [place] 01/30/2024 09:06:09 Past Encounters Encounter ID Performer Location Encounter Start Date Encounter Closed Date Diagnosis/Indication Diagnosis SNOMED-CT Code Diagnosis ICD10 Code Diagnosis Note [id number] [facility] [address] 04/20/2025 10:45:50 04/20/2025 12:37:58 Increased frequency of urination 623667593 R35.0 Chest pain 58930808 R07. 9 Electrocar diogram abnormal 992195629 R94.31 Health Concerns Section Related Observation LastModified by Organization Detai ls LastModified Time None Recorded Concern Status LastModified by Organization Details LastModified Time None Recorded Payers Encounter Date Sequence Insurance Name Policy Number Policy Grover Covered Member ID Grover Member ID Guarantor Name 04/20/2025 1 [facility] (MEDICAID REPLACEMENT - HMO) Shannen Chambers [id number] Shannen Augustin Reyes Notes Date Note Type Note Provider Name and Address Organization Details Recorded Time 04/20/2025 text/html Patient reports she was treated for a UTI. She was seen 03/21 at [facility] urgent care. She was treated with macrobid for e coli positive urine culture. She reports she went back with persistent symptoms and started bactrim. She went to the ER 04/14 and had a CTAP with contrast for right flank pain. She reports dizziness.She reports currently she has frequency, denies dysuria.She reports the chest pain started after going to the ER and had contrast. She reports it has been intermittent. Denies cough. She has a history of reflux, however denies any increased symptoms. Maya Orlando PA-C [address], [place], [address], [place] - [facility] [place] & [place] 04/20/2025 16:56:10 OBGyn Episode No OBEpisode recorded.
--- OUTSIDE RECORDS SUMMARY | 2025-04-24 15:04 | XMS_ITS | Data Portability ---
Author Organization [place] - [place] [facility] [place] ADMIN Address [address] [place] [id number] Assessment Encounter Date Assessment Date Assessment LastModified [...] group A, throat 2023 024 gadiel humphrey [facility], [address] [facility] [address], [place], [address], Ph [phone] 10:15:43 rapid flu (A+B) 2023 024 ocrossbraxtondc s [facility], [address] [facility] [address], [place], [address], Ph [phone] 4 10:15:44 rapid SARS CoV 2 Ag, QL IA, respir atory specim en 2023 024 [facility], [address] [facility] [address], [place], [address], Ph [phone] 10:15:43 Referral None record ed. Procedures None record ed. Surgeries None record ed. Imaging None record ed. Medication Orders valacy clovir 1 gram tablet 2023 [facility], [address] [place] [address], [id number], 4 10:16:25 azithr omycin 500 mg tablet 2023 024 [facility], [address] [place] [address], [id number], 4 10:16:16 mupiro cecilia 2 % topica l ointme nt 2023 [facility], [address] [place] [address], [id number], 4 10:16:19 Patient TargetsNo targets recorded. Patient InstructionsNo instructions recorded. Reason for Referral None Reported. Results Created Date Observation Date Name Description Value Unit Range Abnormal Flag Note LastModifiedBy Organization Detail LastModifiedTime 10/17/20 24 10/17/2024 rapid flu (A+B) Flu A negati ve Not Available [facility] [address] [facility] [address], [place], [address], Ph [phone] 10/17/2024 09:46:48 10/17/20 24 10/17/2024 rapid flu (A+B) Flu B negati ve Not Available [facility] [address] [facility] [address], [place], [address], Ph [phone] 10/17/2024 09:46:48 10/17/20 24 10/17/2024 rapid strep group A, throa t Strep positi ve Not Available [facility] [address] [facility] [address], [place], [address], Ph [phone] 10/17/2024 09:46:27 10/17/20 24 10/17/2024 rapid SARS CoV 2 Ag, QL IA, respi rator y speci men rapid SARS CoV 2 Ag, QL IA, respiratory specimen negati ve Not Available [facility] [address] [facility] [address], [place], [address], Ph [phone] 10/17/2024 09:46:55 Result Notes None recorded. Medical Equipment None Reported. Allergies Allergen ID Allergen Name Allergen Category Reaction Reaction Severity Criticality Documentation Date Start Date Code Code System Note Provider Name and Address Organization Details Recorded Time 460049 Product containin g penicilli n (product) medicatio n Not available Not available Not available 10/17/2024 92845 8001 SNOMED [facility] [place] 4 09:46:18 Medications Name Sig Start Date [...] Address Organization Details Last Updated DateTime 10/17/2024 91543.0 4 g 98.1 [degF] 57 /min 124 mm[Hg] 80 mm[Hg] Tatyana Cruzner [place] - [facility] 09:45:05 Social History None recorded. Functional Status None recorded. Mental Status None recorded. Family History Nothing Reported. Medical History No medical history recorded. Gynecological HistoryNo gynecological history recorded. Obstetrics History GPAL:G 0 P 0 0 0 0 Past Encounters Encounter ID Performer Location Encounter Start Date Encounter Closed Date Diagnosis/Indication Diagnosis SNOMED-CT Code Diagnosis ICD10 Code Diagnosis Note [id number] BRENDAN Sebastian [facility] [address] [facility] [address] [place] [address] 10/17/2024 09:33:23 10/17/2024 10:14:51 Acute streptococcal pharyngitis 2114623118 J02.0 Impetigo 20532769 L01.00 Herpes labialis 1314402 B00.1 Health Concerns Section Related Observation LastModified by Organization Detai ls LastModified Time None Recorded Concern Status LastModified by Organization Details LastModified Time None Recorded Advance Directives Directive None Recorded Payers Insurance Date Sequence Insurance Name Policy Number Policy Grover Covered Member ID Grover Member ID Guarantor Name 10/17/2024 1 [facility] (MEDICAID REPLACEMENT - HMO) Shannen Chambers [id number] Shannen Chambers 10/17/2024 1 [facility] (MEDICAID REPLACEMENT - HMO) Shannen Chambers [id number] Shannen Chambers Notes Date Note Type Note [...] or any other symptoms. Hilda Bee PA-C [address] [facility], [place], [address], [place] 10/17/2024 10:19:24 OBGyn Episode No OBEpisode recorded.
[2025-04-27 11:14] LABS: Atopobium vaginae Low - 0 Score (.); BVAB2 Low - 0 Score (.); Candida albicans NAA Negative (Negative); Candida glabrata Negative (Negative); Chlamydia Trachomatis NAA Negative (Negative); HSV 1 NAA Negative (Negative); HSV 2 NAA Negative (Negative); Megasphaera 1 Low - 0 Score (.); Neisseria gonorrhoeae NAA Negative (Negative); Trich vag NAA Negative (Negative)
== END 2025-04-24 23:59 | disposition home or self-care (01) ==
LOC: LAB.DROPOF 15:01
PROVIDERS: PCP Urology; Visit Provider Urology
DX: N89.8 Other specified noninflammatory disorders of vagina (principal)
CPT/HCPCS: 87491; 87529; 87591; 87661; 87798; 87801

== ENCOUNTER 2025-05-12 07:55 | Day surgery (SDC) | payer MEDICAID, SELFPAY ==
[2025-05-12 08:13] VITALS: BP 126/75; PULSE 84; RESP 16; TEMP 36.7; O2SAT 96; BMI 22.4
[2025-05-12] MEDS: LACTATED RINGERS 1000ML 1,000 ML 25 ML IV (08:57)
[2025-05-12] MEDS: 0.9 % SODIUM CHLORIDE 500 ML 25 ML IV (08:57)
[2025-05-12 09:02] VITALS: BP 133/76; PULSE 75; RESP 18; TEMP 36.1; O2SAT 95
--- NOTE | 2025-05-12 09:11 | HMH.PROCNOTE ---
[facility] Procedure Note Date: 05/12/25 Time: 09:12 Procedure Note:: Chart review: The patient has a history of what she calls urinary tract infections that are recurrent. She says antibiotics did not help. She is somewhat vague on the complaints when she has a UTI. She told me she had some frequency there is some associated dyspareunia and stress urinary incontinence. Her CT scan with infusion showed the urologic negative there is right liver lesion and that perhaps the primary care physician needs to address and we will forward that to the PCP. The patient has been on Estrace and oxybutynin. She has had 3 vaginal deliveries. Pre-Op diagnosis:UTI Postop diagnosis: UTI Operative note: Patient was brought to the cystoscopy suite. LMAC anesthesia was administered. She was anxious and had to have anesthesia sedation in order to proceed. She is prepped and draped in the usual fashion. Flexible cystoscopy shows the urethra to be normal. The bladder itself is salmon-pink in color throughout without evidence of bladder stone tumor hemorrhage or infection. The ureteral orifice ease are normal bilaterally. She has clear urine. She tolerated the procedure well.
[2025-05-12 09:12] VITALS: BP 128/74; PULSE 73; RESP 20; O2SAT 98
[2025-05-12 09:32] VITALS: BP 126/72; PULSE 68; RESP 18; TEMP 36.1; O2SAT 100
[2025-05-12 09:36] VITALS: BP 130/64; PULSE 70; RESP 18; O2SAT 100
== END 2025-05-12 09:32 | disposition home or self-care (01) ==
PROVIDERS: PCP Pediatrics; Visit Provider Urology
PROC: 0TJB8ZZ Inspection of Bladder, Via Natural or Artificial Opening Endoscopic (ICD-10-PCS; CPT 52000; principal; 2025-05-12 09:15)
DX: N39.0 Urinary tract infection, site not specified (principal); R35.0 Frequency of micturition; N94.10 Unspecified dyspareunia; N39.3 Stress incontinence (female) (male); F41.9 Anxiety disorder, unspecified; F32.A Depression, unspecified; M32.9 Systemic lupus erythematosus, unspecified; Z88.0 Allergy status to penicillin; Z79.899 Other long term (current) drug therapy; Z79.890 Hormone replacement therapy
CPT/HCPCS: 52000; 87086; J2003; J2250; J2704; J7040; J7120